=== PATIENT | male | born 1950 | race Caucasian/White ===

== ENCOUNTER → 2024-03-28 | Outpatient (CLI) | payer MEDICARE, OTHER ==
--- NOTE | 2024-04-07 13:19 | CT ---
EXAMINATION TYPE: CT chest abdomen wo con CT DLP: 903 mGycm, Automated exposure control for dose reduction was used. DATE OF EXAM: 03/28/2024 9:58 AM COMPARISON: None. CLINICAL INDICATION:Male, 73 years old with history of C34.90 LUNG CANCER; [facility], f/u lung cancer Technique: CT chest abdomen wo con; Multiple axial images were obtained. Two-dimensional coronal and sagittal reconstructions were obtained. Contrast used: mL of , Oral contrast used: without Oral Contrast Findings: CHEST: LUNGS/ PLEURA: Mild centrilobular emphysema changes and paraseptal emphysema changes. There is reticu lation in the right upper lung with more focal area of consolidation in the superior aspect which is somewhat irregular shaped. There is postsurgical changes to the left upper lung with out evidence of lymphadenopathy or new mass. AIRWAY: Patent and unremarkable. HEART: Size within normal limits. MEDIASTINUM: No gross evidence of adenopathy. VASCULATURE: No aortic aneurysm. MUSCULOSKELETAL: No acute osseous abnormalities. SOFT TISSUES/LYMPH NODES: Unremarkable. LOWER NECK: No significant findings. ABDOMEN: ABDOMEN LIVER: Unremarkable GALLBLADDER AND BILE DUCTS: Unremarkable. PANCREAS: Scattered calcifications of the pancreas parenchyma. SPLEEN: Unremarkable. ADRENAL GLANDS: Unremarkable. KIDNEYS AND URETERS: No evidence of hydronephrosis or renal calculus. The ureters are unremarkable. STOMACH AND BOWEL: No evidence of bowel obstruction. PERITONEUM: No evidence of pneumoperitoneum or free fluid. VASCULATURE: Mild atherosclerotic calcifications are present throughout the abdominal aorta and its b ranches. MUSCULOSKELETAL: No acute osseous abnormalities. Mild disc degeneration changes are present throughou t the thoracolumbar spine. LYMPH NODES: No gross evidence for lymphadenopathy. SOFT TISSUE/ABDOMINAL WALL: Unremarkable IMPRESSION: No priors are available for comparison. 1. Postsurgical changes left lung without evidence for lymphadenopathy or recurrent left lung mass. 2. Parenchymal abnormalities in the right upper lung. Attention follow-up imaging in 3 months to ens ure stability. Comparison study outside imaging may be of benefit. 3. Mild emphysema changes. 4. Chronic pancreatitis changes.
== END | disposition home or self-care (01) ==
LOC: RADCTMAIN 09:36
PROVIDERS: ATTEND Internal Medicine
DX: J43.2 Centrilobular emphysema (principal); K86.1 Other chronic pancreatitis; C34.90 Malignant neoplasm of unspecified part of unspecified bronchus or lung; J44.9 Chronic obstructive pulmonary disease, unspecified; J98.4 Other disorders of lung; K86.2 Cyst of pancreas; Z98.890 Other specified postprocedural states
CPT/HCPCS: 71250; 74150

== ENCOUNTER → 2024-03-31 | Outpatient (CLI) | payer MEDICARE, OTHER ==
[2024-03-31 11:55] VITALS: BP 150/74; PULSE 76; RESP 16
--- NOTE | 2024-03-31 14:56 | P.PAINPG ---
PQRS Measure Charge Sheet Comment: HISTORY OF PRESENT ILLNESS: A 73 yr old male as a referral from Dr Hale presents today w severe and chronic epigastric pain secondary to chronic pancreatitis for evaluation. Pt states pain level is provoked at 8 /10 in intensity, constant, localized in the upper abdomen, burning in character w occasional shooting pain towards the mid back. Pain has unknown provocative factors. Pain is alleviated by medications (Creon, MS, Tyl), topical, heat, ice, use of a cane for ambulatory assistance, repositioning and rest. Will obtain records from his physician in [place] per MAPS. PMH: OA, HTN, Hyperlipidemia, GERD, BPH, Chronic Idiopathic Pancreatitis (2015), Liver CA PSH: Lung Lobectomy (2010), RLL/ ULL Lobectomy (2018) by Dr Lynne SH: Former tobacco user, No ETOH abuse, No illicit drug use FH: Noncontributory All: See list Meds: See list REVIEW OF ORGAN SYSTEMS: CONSTITUTIONAL: No fevers or chills. No recent weight loss. NEUROLOGICAL: + numbness and tingling along the distal extremities. No seizure disorders or headaches. MUSCULOSKELETAL: + pain PSYCHIATRIC: Denies current depression or suicidal thoughts. Physical Examinations : Constitutional : Cooperative , not in acute distress . Neurologic : Cranial nerve II to XII intact. No focal neurological deficits. Psychiatric : alert & oriented x 3. Matching mood & appropriate affect. Judgment & insight intact. Musculoskeletal : Cervical Spine Motor strength in the deltoid and biceps: Normal right side. Normal Left side Motor strength biceps and the wrist extensors: Normal right side . Normal left side Motor strength in the triceps muscle: Normal right side. Normal left side Deep tendon reflexes: Normal at the biceps. Normal at Brachioradialis. Normal at triceps Vertebral body tenderness to deep palpation over Cervical facet loading test: positive bilaterally Spurling test: positive bilaterally Neck distraction test: positive bilaterally Bridget sign: positive bilaterally Lumbar spine Motor strength lower extremities ,thigh and legs 5/5 Right side , 5/5 Left side Deep tendon reflexes : Normal Knee Jerk. Normal Ankle Jerk Vertebral body tenderness over Gomez Test positive Lumbar facet Loading Test: positive Right / positive Left Range of motion of the lumbar spine Flexion 30 degrees, extension 10 degrees Straight Leg Raise test: Left/ Right positive at degrees Shiela test: positive right / positive left. Severe tenderness over the Sacroiliac joint on the Right / Left sides Gaenslen test: positive bilaterally Seated flexion test: positive bilaterally. Sacral spine : Severe tenderness over the Sacroiliac joint: right side / left side Range of motion: Flexion of the lumbar spine <60 degrees Range of motion: Extension of the lumbar spine <20 degrees Gaenslen's Test positive Shiela test: positive right side / left side Thigh Thrust Test Sacral Thrust Test Assessment/ Plan : Chronic Idiopathic Pancreatitis Recommendation of medication management. MS ER 15mg #90 w 1 RF. Use, side effects, adverse reactions, safe storage discussed. Pt does not drive since 1996 and presents w dental assistant medical assistant today. Opiate/ narcotic agreement signed 03/31/24. All questions answered. I have spent greater than 30 minutes on patient care today. Dr Pisano was available by phone for the evaluation of this patient. The time was used to review the medical records including relevant urine studies and Prescription history (MAPs), review of the available imaging, evaluation and examination of the patient, coordination of care with the medical staff and if applicable refer ring physicians, as well as creation of the medical record Home Medications: Ambulatory Orders Morphine Sulfate ER [Ms Contin] 15 mg PO TID 30 Days #90 tab 03/31/24 Morphine Sulfate ER [Ms Contin] 15 mg PO TID 30 Days #90 tab 03/31/24 Controlled Substance Measures - Controlled Substance Measures Is patient prescribed a controlled substance at discharge?: Yes When asked, does pt state using other controlled substances?: No If prescribed controlled substance>3 days was MAPS reviewed?: Yes If Rx opioid, was Start Talking consent form obtained?: Yes Was information provided regarding opioid addiction?: Yes
== END ==
LOC: PNWHC3 10:27
PROVIDERS: ATTEND Specialist
DX: K86.1 Other chronic pancreatitis (principal); G89.29 Other chronic pain; R10.13 Epigastric pain; Z87.891 Personal history of nicotine dependence; Z88.0 Allergy status to penicillin; Z88.8 Allergy status to other drugs, medicaments and biological substances; Z88.1 Allergy status to other antibiotic agents; Z88.5 Allergy status to narcotic agent
CPT/HCPCS: 99211

== ENCOUNTER → 2024-05-28 | Outpatient (CLI) | payer MEDICARE, OTHER ==
[2024-05-28 08:24] VITALS: BP 128/72; PULSE 60; RESP 16; TEMP 97.1
--- NOTE | 2024-05-28 13:57 | P.PAINPG ---
PQRS Measure Charge Sheet Comment: HISTORY OF PRESENT ILLNESS: A 73 yr old male presents today w severe and chronic epigastric pain secondary to chronic pancreatitis for medication refills. Pt states pain level is provoked at 7 /10 in intensity, constant, localized in the upper abdomen, burning in character w occasional shooting pain towards the mid back. Pain has unknown provocative factors. Pain is alleviated by medications, topical, heat, ice, use of a cane for ambulatory assistance, repositioning and rest. Interventional procedures include Medications include MS ER 15mg #90, Tyl REVIEW OF ORGAN SYSTEMS: CONSTITUTIONAL: No fevers or chills. No recent weight loss. NEUROLOGICAL: + numbness and tingling along the distal extremities. No seizure disorders or headaches. MUSCULOSKELETAL: + pain PSYCHIATRIC: Denies current depression or suicidal thoughts. Physical Examinations : Constitutional : Cooperative , not in acute distress . Neurologic : Cranial nerve II to XII intact. No focal neurological deficits. Psychiatric : alert & oriented x 3. Matching mood & appropriate affect. Judgment & insight intact. Musculoskeletal : Cervical Spine Motor strength in the deltoid and biceps: Normal right side. Normal Left side Motor strength biceps and the wrist extensors: Normal right side . Normal left side Motor strength in the triceps muscle: Normal right side. Normal left side Deep tendon reflexes: Normal at the biceps. Normal at Brachioradialis. Normal at triceps Vertebral body tenderness to deep palpation over Cervical facet loading test: positive bilaterally Spurling test: positive bilaterally Neck distraction test: positive bilaterally Bridget sign: positive bilaterally Lumbar spine Motor strength lower extremities ,thigh and legs 5/5 Right side , 5/5 Left side Deep tendon reflexes : Normal Knee Jerk. Normal Ankle Jerk Vertebral body tenderness over Gomez Test positive Lumbar facet Loading Test: positive Right / positive Left Range of motion of the lumbar spine Flexion 30 degrees, extension 10 degrees Straight Leg Raise test: Left/ Right positive at degrees Shiela test: positive right / positive left. Severe tenderness over the Sacroiliac joint on the Right / Left sides Gaenslen test: positive bilaterally Seated flexion test: positive bilaterally. Sacral spine : Severe tenderness over the Sacroiliac joint: right side / left side Range of motion: Flexion of the lumbar spine <60 degrees Range of motion: Extension of the lumbar spine <20 degrees Gaenslen's Test positive Shiela test: positive right side / left side Thigh Thrust Test Sacral Thrust Test Assessment/ Plan : Chronic Idiopathic Pancreatitis Recommendation of medication management. MS ER 15mg #90 w 1 RF. Use, side effects, adverse reactions, safe storage discussed. Opiate/ narcotic agreement signed 03/31/24. UDS collected 05/28/24. All questions answered. I have spent greater than 30 minutes on patient care today. Dr Pisano was available by phone for the evaluation of this patient. The time was used to review the medical records including relevant urine studies and Prescription history (MAPs), review of the available imaging, evaluation and examination of the patient, coordination of care with the medical staff and if applicable referring physicians, as well as creation of the medical record - Pain Location Left Upper Abdomen Non-Pharmacological Interventions: Position/Reposition Pharmacological Interventions: PRN Medication, Scheduled Medication PQRS Narrative: Hx Alcohol Use (MH) No Home Medications: Ambulatory Orders Albuterol Inhaler [Ventolin Hfa Inhaler] 1 - 2 puff INHALATION Q6H 03/31/24 Albuterol Sulfate [Accuneb] 3 ml INHALATION 03/31/24 Famotidine 20 mg PO 03/31/24 Finasteride [Proscar] 5 mg PO 03/31/24 Ipratropium [place] [Atrovent Hfa] 2 puff INHALATION QID 03/31/24 LORazepam [Lorazepam] 0.5 mg PO 03/31/24 Lipase/Protease/Amylase [Antonio [place] 36,000 Unit Capsule] 1 each PO 03/31/24 Metoprolol Succinate (ER) [Toprol Xl] 50 mg PO DAILY 03/31/24 Nitroglycerin 0.4 SUBLINGUAL 03/31/24 Omeprazole [PriLOSEC] 40 mg PO DAILY 03/31/24 Tamsulosin [Flomax] 0.4 mg PO DAILY 03/31/24 levalbuterol HCL 1.25 mg INHALATION 03/31/24 tiaGABine HCL [Gabitril] 4 mg PO 03/31/24 Morphine Sulfate ER [Ms Contin] 15 mg PO TID 30 Days #90 tab 05/28/24 Morphine Sulfate ER [Ms Contin] 15 mg PO TID 30 Days #90 tab 05/28/24 Controlled Substance Measures - Controlled Substance Measures Is patient prescribed a controlled substance at discharge?: Yes When asked, does pt state using other controlled substances?: Yes If prescribed controlled substance>3 days was MAPS reviewed?: Yes
== END ==
LOC: PNWHC3 07:38
PROVIDERS: ATTEND Specialist
DX: K86.1 Other chronic pancreatitis (principal); M47.816 Spondylosis without myelopathy or radiculopathy, lumbar region; Z88.0 Allergy status to penicillin; Z88.8 Allergy status to other drugs, medicaments and biological substances; Z88.1 Allergy status to other antibiotic agents; Z88.5 Allergy status to narcotic agent
CPT/HCPCS: 80307; 99212

== ENCOUNTER 2024-07-23 16:16 | Emergency (ER) | payer MEDICARE, OTHER ==
[2024-07-23 16:25] VITALS: RESP 18; TEMP 97.4
--- NOTE | 2024-07-23 16:27 | ED ---
General Adult HPI - General Stated complaint: Poss Allergic Reaction Time Seen by Provider: 07/23/24 16:18 Source: patient, EMS, RN notes reviewed, old records reviewed Mode of arrival: EMS Limitations: no limitations - History of Present Illness Initial comments: 73-year-old male who presents to the emergency department stating he has allergic reactions to anything with dairy. Patient states he ate some bread today that had cheese on it and he was unaware of that. Patient states after that he started to get lightheaded and felt like it was difficult to breathe patient states he took a Zyrtec and that helped his breathing. Patient states currently is asymptomatic. According to EMS he was asymptomatic the hallway end. Patient [place] any chest pain or palpitations. Patient denies any numbness or weakness. Patient states this is what always happens when he takes anything with dairy but he also states that this could be a little anxiety because he has a long history of anxiety and once he found out there was cheats he did become very anxious. - Related Data Home Medications Medication Instructions Recorded Confirmed Albuterol Inhaler [Ventolin Hfa 1 - 2 puff INHALATION Q6H 03/31/24 03/31/24 Inhaler] Albuterol Sulfate [Accuneb] 3 ml INHALATION 03/31/24 Famotidine 20 mg PO 03/31/24 Finasteride [Proscar] 5 mg PO 03/31/24 Ipratropium [place] [Atrovent Hfa] 2 puff INHALATION QID 03/31/24 03/31/24 LORazepam [Lorazepam] 0.5 mg PO 03/31/24 Lipase/Protease/Amylase [Creon Dr 1 each PO 03/31/24 36,000 Unit Capsule] Metoprolol Succinate (ER) [Toprol 50 mg PO DAILY 03/31/24 03/31/24 Xl] Nitroglycerin 0.4 SUBLINGUAL 03/31/24 Omeprazole [PriLOSEC] 40 mg PO DAILY 03/31/24 03/31/24 Tamsulosin [Flomax] 0.4 mg PO DAILY 03/31/24 03/31/24 levalbuterol HCL 1.25 mg INHALATION 03/31/24 tiaGABine HCL [Gabitril] 4 mg PO 03/31/24 Previous Rx's Medication Instructions Recorded Morphine Sulfate ER [Ms Contin] 15 mg PO TID 30 Days #90 tab 05/28/24 Morphine Sulfate ER [Ms Contin] 15 mg PO TID 30 Days #90 tab 05/28/24 Morphine Sulfate ER [Ms Contin] 15 mg PO Q12HR 3 Days #6 tab 06/05/24 Morphine Sulfate ER [Ms Contin] 15 mg PO TID 30 Days #90 tab 06/05/24 Morphine Sulfate ER [Ms Contin] 15 mg PO TID 15 Days #45 tab 06/11/24 Allergies Allergy/AdvReac Type Severity Reaction Status Date / Time amoxicillin Allergy Unknown Verified 07/23/24 16:25 ketorolac [From Toradol] Allergy Unknown Verified 07/23/24 16:25 levofloxacin [From Levaquin] Allergy Unknown Verified 07/23/24 16:25 metronidazole [From Flagyl] Allergy Unknown Verified 07/23/24 16:25 oxycodone Allergy Unknown Verified 07/23/24 16:25 Penicillins Allergy Unknown Verified 07/23/24 16:25 tramadol Allergy Unknown Verified 07/23/24 16:25 Review of Systems ROS Statement: Those systems with pertinent positive or pertinent negative responses have been documented in the HPI. ROS Other: All systems not noted in ROS Statement are negative. Past Medical History Past Medical History: Cancer Additional Past Medical History / Comment(s): Lung cancer, pancreatitis, brain damage-TBI History of Any Multi-Drug Resistant Organisms: None Reported Additional Past Surgical History / Comment(s): Lung cancer bilateral lobectomy Past Psychological History: No Psychological Hx Reported Smoking Status: Former smoker Past Alcohol Use History: None Reported Past Drug Use History: None Reported General Exam - General Exam Comments Initial Comments: GENERAL: Patient is well-developed and well-nourished. Patient is nontoxic and well- hydrated and is in no acute distress. ENT: Neck is soft and supple. No significant lymphadenopathy is noted. Oropharynx is clear. Moist mucous membranes. Neck has full range of motion without eliciting any pain. EYES: The sclera were anicteric and conjunctiva were pink and moist. Extraocular movements were intact and pupils were equal round and reactive to light. Eyelids were unremarkable. PULMONARY: Unlabored respirations. Good breath sounds bilaterally. No audible rales rhonchi or wheezing was noted. CARDIOVASCULAR: There is a regular rate and rhythm without any murmurs gallops or rubs. ABDOMEN: Soft and nontender with normal bowel sounds. SKIN: Skin is clear with no lesions or rashes and otherwise unremarkable. NEUROLOGIC: Patient is alert and oriented x3. Cranial nerves II through XII are grossly intact. Motor and sensory are also intact. Normal speech, volume and content. Symmetrical smile. MUSCULOSKELETAL: Normal extremities with adequate strength and full range of motion. LYMPHATICS: No significant lymphadenopathy is noted PSYCHIATRIC: Normal psychiatric evaluation. Limitations: no limitations Course Vital Signs 07/23/24 07/23/24 07/23/24 16:19 16:30 17:00 Temperature 97.4 F L Pulse Rate 67 60 56 L Respiratory 18 18 18 Rate Blood Pressure 146/66 146/66 133/74 O2 Sat by Pulse 100 99 100 Oximetry 07/23/24 07/23/24 07/23/24 17:30 18:00 18:30 Temperature Pulse Rate 68 61 66 Respiratory 18 18 18 Rate Blood Pressure 118/59 137/69 116/60 O2 Sat by Pulse 100 Oximetry Medical Decision Making - Medical Decision Making EKG is interpreted by myself. EKG shows a sinus rhythm at 60 bpm. Over the 163 QRS is 102 QT interval is 414 QTc is 415. Patient's EKG shows no ST segment ovation or depression. Was pt. sent in by a medical professional or institution (, PA, RAILWAY TRACK WORKER, urgent care, hospital, or usp...) When possible be specific @ -No Did you speak to anyone other than the patient for history (EMS, parent, family, police, friend...)? What history was obtained from this source @ -No Did you review nursing and triage notes (agree or disagree)? Why? @ -I reviewed and agree with nursing and triage notes Were old charts reviewed (outside hosp., previous admission, EMS record, old EKG, old radiological studies, urgent care reports/EKG's, usp records)? Report findings @ -No old charts were reviewed Differential Diagnosis? @ -Anxiety, allergic reaction, pneumonia, bronchitis, this is not an all- inclusive list EKG interpreted by me (3pts min.). @ -As above X-rays interpreted by me (1pt min.). @ -Patient's chest x-ray shows a area of opacification of the right upper lobe which was there on a previous CAT scan months ago. Patient is aware that he has lung cancer and follows up regularly. CT interpreted by me (1pt min.). @ -None done U/S interpreted by me (1pt. min.). @ -None done What testing was considered but not performed or refused? (CT, X-rays, U/S, labs)? Why? @ -None What meds were considered but not given or refused? Why? @ -None Did you discuss the management of the patient with other professionals (professionals i.e. Dr., PA, RAILWAY TRACK WORKER, lab, RT, psych nurse, social service liaison, curtain feller blindstitch, teacher, dispatch officer, vocational case manager)? Give summary @ -No Was smoking cessation discussed for >3mins.? @ -No Was critical care preformed (if so, how long)? @ -No Were there social determinants of health that impacted care today? How? (Homelessness, low income, unemployed, alcoholism, drug addiction, transportation, low edu. Level, literacy, decrease access to med. care, [facility], rehab)? @ -No Was there de-escalation of care discussed even if they declined (Discuss DNR or withdrawal of care, Hospice)? DNR status @ -No What co-morbidities impacted this encounter? (DM, HTN, Smoking, COPD, CAD, Ca ncer, CVA, ARF, Chemo, Hep., AIDS, mental health diagnosis, sleep apnea, morbid obesity)? @ -None Was patient admitted / discharged? Hospital course, mention meds given and route, prescriptions, significant lab abnormalities, going to OR and other pertinent info. @ -Patient was initially given prednisone he was asymptomatic shortly thereafter. Patient did need some Ativan because he states he felt very anxious. I went back and reevaluated the patient on 2 different occasions and patient was feeling back to his baseline and wanted to be discharged home. Undiagnosed new problem with uncertain prognosis? @ -No Drug Therapy requiring intensive monitoring for toxicity (Heparin, Nitro, Insulin, Cardizem)? @ -No Were any procedures done? @ -No Diagnosis/symptom? @ -Allergic reaction Acute, or Chronic, or Acute on Chronic? @ -Acute Uncomplicated (without systemic symptoms) or Complicated (systemic symptoms)? @ -Uncomplicated Side effects of treatment? @ -No Exacerbation, Progression, or Severe Exacerbation? @ -No Poses a threat to life or bodily function? How? (Chest pain, [place], [place], pneumonia, PE, COPD, DKA, ARF, appy, cholecystitis, CVA, Diverticulitis, Homicidal, Suicidal, threat to staff... and all critical care pts) @ -No Disposition Clinical Impression: Allergic reaction Disposition: HOME SELF-CARE Condition: Good Instructions (If sedation given, give patient instructions): General Allergic Reaction (ED) Is patient prescribed a controlled substance at d/c from ED?: No Referrals: Marvin Peace [Primary Care Provider] - 1-2 days Time of Disposition: 19:08
[2024-07-23] MEDS: predniSONE 20 MG TAB PO STA (16:43)
[2024-07-23] MEDS ORDERED: LORazepam 2 MG/ML INJ IV PRN (17:13)
[2024-07-23] MEDS: LORazepam 2 MG/ML INJ IV STA (17:26)
--- NOTE | 2024-07-23 18:17 | XR ---
EXAMINATION TYPE: XR chest 2V DATE OF EXAM: 07/23/2024 COMPARISON: CT chest 03/28/2024 INDICATION: Difficulty breathing TECHNIQUE: Frontal and lateral views of the chest are obtained. FINDINGS: The heart size is normal. The pulmonary vasculature is normal. There is some minimal infiltrate in the periphery of the right upper lung field. This was present on the comparison CT examination may be related to patient's known lung cancer.. IMPRESSION: 1. Mild peripheral right upper lobe infiltrate, present on prior CT examination. This may be related to the patient's lung cancer. 2. No acute pulmonary process.
[2024-07-23 18:40] VITALS: BP 116/60; PULSE 66
== END 2024-07-23 19:22 | disposition home or self-care (01) ==
LOC: EC 16:16
CPT/HCPCS: 71046; 93005; 96374; 99284

== ENCOUNTER → 2024-07-31 | Outpatient (CLI) | payer MEDICARE, OTHER ==
--- NOTE | 2024-07-31 11:37 | CT ---
EXAMINATION TYPE: CT ChestAbdPelvis wo con DATE OF EXAM: 07/31/2024 COMPARISON: 03/28/2024 HISTORY: chest pain CT DLP: 448.5 mGycm. Automated Exposure Control for Dose Reduction was Utilized. TECHNIQUE: CT scan of the thorax, abdomen and pelvis is performed without IV contrast. FINDINGS: CT chest: There are postsurgical changes of left upper lobe lobectomy. There is a focal area of stable marked interstitial changes with a few internal scattered satellite s ubcentimeter nodules. A stable 4-5 mm nodule in the left upper lung zone. There are mild emphysematous changes. There is no new or suspicious lung mass or nodule. There is a 2.1 cm mass in the right hilar region which was not clearly identified in the prior study. It possibly represents an enlarged right hilar lymph node but the examination is limited due to lack of IV contrast. There is no pleural effusion or pneumothorax. There is no thoracic aortic aneurysm. There is focal abnormality of the posterior proximal left sixth rib which possibly represents a remot e healed fracture. No other focal osseous abnormalities are seen. CT abdomen and pelvis: Gallbladder is normal and there is no gallstone, wall thickening, pericholecystic fluid or distention . There is no biliary ductal dilatation. There is no organomegaly of the liver, pancreas, spleen or adrenal glands. There are diffuse calcific ations within the pancreas consistent with chronic pancreatitis. There are no renal calcifications or hydronephrosis. The caliber of the abdominal aorta is normal and there is no retroperitoneal adenopathy or hemorrhage . The bowel loops are normal in caliber is no evidence of obstruction. No inflammatory changes are iden tified in the mesentery and there is no free intraperitoneal air or fluid. There is no pelvic mass, free fluid, abscess or adenopathy. There is marked prostatic hypertrophy wit h mass effect on the bladder base. The osseous structures and soft tissues are unremarkable. IMPRESSION: 1. Stable focal area of right upper lobe interstitial density with few scattered stable sub-6 mm nodu les bilaterally. 2. Post surgical changes of left upper lobe lobectomy. 3. Questionable large 2.1 cm right hilar lymph node as described above. Examination is limited for ev aluation of mediastinal and hilar adenopathy secondary to lack of contrast and repeat CT chest with c ontrast is recommended to rule out an enlarged right hilar lymph node. 4. No evidence of metastatic disease within the abdomen or pelvis. 5. Marked prostatic hypertrophy and chronic pancreatic calcifications.
== END | disposition home or self-care (01) ==
LOC: RADCTMAIN 10:43
PROVIDERS: ATTEND Internal Medicine
DX: C34.90 Malignant neoplasm of unspecified part of unspecified bronchus or lung
CPT/HCPCS: 71250; 74176

== ENCOUNTER 2024-09-11 09:40 | Inpatient (IN) | payer MEDICARE, OTHER ==
[2024-09-11 09:50] VITALS: TEMP 98.7
--- NOTE | 2024-09-11 10:38 | ED ---
General Adult HPI - General Chief complaint: Chest Pain Stated complaint: SOB Time Seen by Provider: 09/11/24 09:42 Source: patient, RN notes reviewed, old records reviewed Mode of arrival: EMS Limitations: no limitations - History of Present Illness Initial comments: 73-year-old male presenting for evaluation of chest pain and dyspnea. Patient has prior history of lung CA status post bilateral lobectomies. He does report mild cough. Pain was central chest. No reported history of CAD. No diaphoresis. No vomiting. - Related Data Home Medications Medication Instructions Recorded Confirmed Albuterol Inhaler [Ventolin Hfa 1 - 2 puff INHALATION Q6H 03/31/24 03/31/24 Inhaler] Albuterol Sulfate [Accuneb] 3 ml INHALATION 03/31/24 Famotidine 20 mg PO 03/31/24 Finasteride [Proscar] 5 mg PO 03/31/24 Ipratropium [place] [Atrovent Hfa] 2 puff INHALATION QID 03/31/24 03/31/24 LORazepam [Lorazepam] 0.5 mg PO 03/31/24 Lipase/Protease/Amylase [Creon Dr 1 each PO 03/31/24 36,000 Unit Capsule] Metoprolol Succinate (ER) [Toprol 50 mg PO DAILY 03/31/24 03/31/24 Xl] Nitroglycerin 0.4 SUBLINGUAL 03/31/24 Omeprazole [PriLOSEC] 40 mg PO DAILY 03/31/24 03/31/24 Tamsulosin [Flomax] 0.4 mg PO DAILY 03/31/24 03/31/24 levalbuterol HCL 1.25 mg INHALATION 03/31/24 tiaGABine HCL [Gabitril] 4 mg PO 03/31/24 Previous Rx's Medication Instructions Recorded Morphine Sulfate ER [Ms Contin] 15 mg PO TID 30 Days #90 tab 08/13/24 Morphine Sulfate ER [Ms Contin] 15 mg PO TID 30 Days #90 tab 08/13/24 Allergies Allergy/AdvReac Type Severity Reaction Status Date / Time amoxicillin Allergy Unknown Verified 09/11/24 13:06 fentanyl Allergy Unknown Verified 09/11/24 13:06 ketorolac [From Toradol] Allergy Unknown Verified 09/11/24 13:06 levofloxacin [From Levaquin] Allergy Unknown Verified 09/11/24 13:06 metronidazole [From Flagyl] Allergy Unknown Verified 09/11/24 13:06 oxycodone Allergy Unknown Verified 09/11/24 13:06 Penicillins Allergy Unknown Verified 09/11/24 13:06 tramadol Allergy Unknown Verified 09/11/24 13:06 Review of Systems ROS Statement: Those systems with pertinent positive or pertinent negative responses have been documented in the HPI. ROS Other: All systems not noted in ROS Statement are negative. Past Medical History Past Medical History: Cancer Additional Past Medical History / Comment(s): Lung cancer, pancreatitis, brain damage-TBI History of Any Multi-Drug Resistant Organisms: None Reported Additional Past Surgical History / Comment(s): Lung cancer bilateral lobectomy Past Psychological History: No Psychological Hx Reported Smoking Status: Former smoker Past Alcohol Use History: None Reported Past Drug Use History: None Reported General Exam Limitations: no limitations General appearance: alert, in no apparent distress Head exam: Present: atraumatic, normocephalic Eye exam: Present: normal appearance, PERRL Respiratory exam: Present: decreased breath sounds. Absent: respiratory distress Cardiovascular Exam: Present: normal rhythm, bradycardia GI/Abdominal exam: Present: soft. Absent: distended Extremities exam: Present: pedal edema (trace) Course Vital Signs 09/11/24 09/11/24 09/11/24 09:46 10:06 10:12 Temperature 98.7 F Pulse Rate 63 49 L Pulse Rate [ 59 L Assignment Desk Assistant ] Respiratory 18 20 Rate Blood Pressure 112/71 134/56 O2 Sat by Pulse 99 99 Oximetry 09/11/24 11:40 Temperature Pulse Rate 55 L Pulse Rate [ Assignment Desk Assistant ] Respiratory 16 Rate Blood Pressure 107/55 O2 Sat by Pulse 98 Oximetry Medical Decision Making - Medical Decision Making Was pt. sent in by a medical professional or institution (, [place], [facility], urgent care, hospital, or assisted...) When possible be specific @ -No Did you speak to anyone other than the patient for history (EMS, parent, family, police, friend...)? What history was obtained from this source @ -No Did you review nursing and triage notes (agree or disagree)? Why? @ -I reviewed and agree with nursing and triage notes Were old charts reviewed (outside hosp., previous admission, EMS record, old EKG, old radiological studies, urgent care reports/EKG's, assisted records)? Report findings @ -No old charts were reviewed Differential Chest Pain: Stable Angina, Unstable Angina, STEMI, NSTEMI Aortic Dissection, Pneumothorax, Musculoskeletal, Esophageal Spasm GERD, Cholecystitis, Pancreatitis, Zoster, this is not meant to be an all-inclusive list. EKG interpreted by me (3pts min.). @EKG: Sinus bradycardia with sinus arrhythmia rate of 52, IA interval 169, QRS duration 101, QTc [address] segment elevation. X-rays interpreted by me (1pt min.). @ -Chest x-ray persistent perihilar mass CT interpreted by me (1pt min.). @ -CT angiography negative for PE U/S interpreted by me (1pt. min.). @ -None done What testing was considered but not performed or refused? (CT, X-rays, U/S, labs)? Why? @ -None What meds were considered but not given or refused? Why? @ -None Did you discuss the management of the patient with other professionals (professionals i.e. , PA, [facility], lab, RT, psych nurse, psych social worker, freight service inspector, teacher, assurance officer, child support case officer)? Give summary @ -Case discussed with Dr. Jimenez Was smoking cessation discussed for >3mins.? @ -No Was critical care preformed (if so, how long)? @ -No Were there social determinants of health that impacted care today? How? (Homelessness, low income, unemployed, alcoholism, drug addiction, transportation, low edu. Level, literacy, decrease access to med. care, [facility], rehab)? @ -No Was there de-escalation of care discussed even if they declined (Discuss DNR or withdrawal of care, Hospice)? DNR status @ -No What co-morbidities impacted this encounter? (DM, HTN, Smoking, COPD, CAD, Cancer, CVA, ARF, Chemo, Hep., AIDS, mental health diagnosis, sleep apnea, morbid obesity)? @ -[Lung CA Was patient admitted / discharged? Hospital course, mention meds given and route, prescriptions, significant lab abnormalities, going to OR and other pertinent info. @73-year-old male with known lung cancer presenting with central chest pain and some right-sided chest pain with associated dyspnea. Initial workup does reveal an elevated D-dimer and patient received CT angiography in the emergency department which is negative for PE. He has a negative troponin, nonischemic EKG. He does report some associated lightheadedness and near syncope associated with his pain. Patient will be observed for hydration, pain control evaluation by his oncologist and serial cardiac enzymes. Undiagnosed new problem with uncertain prognosis? @ -No Drug Therapy requiring intensive monitoring for toxicity (Heparin, Nitro, Insulin, Cardizem)? @ -No Were any procedures done? @ -No Diagnosis/symptom? @ -[Atypical chest pain, lung cancer Acute, or Chronic, or Acute on Chronic? @ -Acute Uncomplicated (without systemic symptoms) or Complicated (systemic symptoms)? @ -[default Side effects of treatment? @ -No Exacerbation, Progression, or Severe Exacerbation? @ -No Poses a threat to life or bodily function? How? (Chest pain, [place], SC, pneumonia, PE, COPD, DKA, ARF, appy, cholecystitis, CVA, Diverticulitis, Homicidal, Suicidal, threat to staff... and all critical care pts) @ -Yes, chest pain - Lab Data Result diagrams: 09/11/24 10:06 09/11/24 10:06 Lab Results 09/11/24 09/11/24 09/11/24 Range/Units 10:06 10:06 10:06 WBC 5.0 (3.8-10.6) k/uL RBC 3.97 L (4.30-5.90) m/uL Hgb 12.9 L (13.0-17.5) gm/dL Hct 39.0 (39.0-53.0) % MCV 98.3 (80.0-100.0) fL MCH 32.5 (25.0-35.0) pg MCHC 33.1 (31.0-37.0) g/dL RDW 13.9 (11.5-15.5) % Plt Count 156 (150-450) k/uL MPV 8.6 Neutrophils % 54 % Lymphocytes % 33 % Monocytes % 8 % Eosinophils % 3 % Basophils % 0 % Neutrophils # 2.7 (1.3-7.7) k/uL Lymphocytes # 1.6 (1.0-4.8) k/uL Monocytes # 0.4 (0-1.0) k/uL Eosinophils # 0.2 (0-0.7) k/uL Basophils # 0.0 (0-0.2) k/uL PT 10.0 (10.0-12.5) sec INR 0.9 (<1.2) APTT 28.4 (22.0-30.0) sec D-Dimer 0.78 H (<0.60) mg/L FEU Sodium 136 L (137-145) mmol/L Potassium 4.0 (3.5-5.1) mmol/L Chloride 108 H (98-107) mmol/L Carbon Dioxide 23 (22-30) mmol/L Anion Gap 5 mmol/L BUN 12 (9-20) mg/dL Creatinine 0.77 (0.66-1.25) mg/dL Est GFR (CKD-EPI)AfAm >90 (>60 ml/min/1.73 sqM) Est GFR (CKD-EPI)NonAf 90 (>60 ml/min/1.73 sqM) Glucose 107 H (74-99) mg/dL Calcium 8.6 (8.4-10.2) mg/dL Magnesium 2.2 (1.6-2.3) mg/dL Total Bilirubin 0.6 (0.2-1.3) mg/dL AST 17 (17-59) U/L ALT 13 (4-49) U/L Alkaline Phosphatase 33 L (38-126) U/L Troponin I (0.000-0.034) ng/mL Total Protein 5.9 L (6.3-8.2) g/dL Albumin 3.7 (3.5-5.0) g/dL 09/11/24 Range/Units 10:06 WBC (3.8-10.6) k/uL RBC (4.30-5.90) m/uL Hgb (13.0-17.5) gm/dL Hct (39.0-53.0) % MCV (80.0-100.0) fL MCH (25.0-35.0) pg MCHC (31.0-37.0) g/dL RDW (11.5-15.5) % Plt Count (150-450) k/uL MPV Neutrophils % % Lymphocytes % % Monocytes % % Eosinophils % % Basophils % % Neutrophils # (1.3-7.7) k/uL Lymphocytes # (1.0-4.8) k/uL Monocytes # (0-1.0) k/uL Eosinophils # (0-0.7) k/uL Basophils # (0-0.2) k/uL PT (10.0-12.5) sec INR (<1.2) APTT (22.0-30.0) sec D-Dimer (<0.60) mg/L FEU Sodium (137-145) mmol/L Potassium (3.5-5.1) mmol/L Chloride (98-107) mmol/L Carbon Dioxide (22-30) mmol/L Anion Gap mmol/L BUN (9-20) mg/dL Creatinine (0.66-1.25) mg/dL Est GFR (CKD-EPI)AfAm (>60 ml/min/1.73 sqM) Est GFR (CKD-EPI)NonAf (>60 ml/min/1.73 sqM) Glucose (74-99) mg/dL Calcium (8.4-10.2) mg/dL Magnesium (1.6-2.3) mg/dL Total Bilirubin (0.2-1.3) mg/dL AST (17-59) U/L ALT (4-49) U/L Alkaline Phosphatase (38-126) U/L Troponin I <0.012 (0.000-0.034) ng/mL Total Protein (6.3-8.2) g/dL Albumin (3.5-5.0) g/dL Disposition Clinical Impression: Chest pain, Lung cancer Disposition: ADMITTED IP TO THIS [facility] Condition: Stable Is patient prescribed a controlled substance at d/c from ED?: No Referrals: Wilmer Dumont DO [Primary Care Provider] - 1-2 days Time of Disposition: 13:09
[2024-09-11 10:39] LABS: ALT 13 U/L (4-49); AST 17 U/L (17-59); African American GFR (CKD) >90 (>60 ml/min/1.73 sqM); Albumin 3.7 g/dL (3.5-5.0); Alkaline Phosphatase 33 U/L (38-126); Anion Gap 5 mmol/L; Blood Urea Nitrogen 12 mg/dL (9-20); Calcium 8.6 mg/dL (8.4-10.2); Carbon Dioxide 23 mmol/L (22-30); Chloride 108 mmol/L (98-107); Glucose 107 mg/dL (74-99); Magnesium 2.2 mg/dL (1.6-2.3); Non-African American GFR(CKD) 90 (>60 ml/min/1.73 sqM); Sodium 136 mmol/L (137-145); Total Bilirubin 0.6 mg/dL (0.2-1.3); Total Protein 5.9 g/dL (6.3-8.2)
[2024-09-11 10:41] LABS: Basophils % (A) 0 %; Eosinophils # (A) 0.2 k/uL (0-0.7); Eosinophils % (A) 3 %; HGB 12.9 gm/dL (13.0-17.5); Lymphocytes # (A) 1.6 k/uL (1.0-4.8); Lymphocytes % (A) 33 %; MCH 32.5 pg (25.0-35.0); MCHC 33.1 g/dL (31.0-37.0); MCV 98.3 fL (80.0-100.0); Mean Platelet Volume 8.6; Monocytes # (A) 0.4 k/uL (0-1.0); Monocytes % (A) 8 %; Neutrophils # (A) 2.7 k/uL (1.3-7.7); Neutrophils % (A) 54 %; Platelet Count 156 k/uL (150-450); RBC 3.97 m/uL (4.30-5.90); RDW 13.9 % (11.5-15.5)
[2024-09-11 10:42] LABS: INR 0.9 (<1.2); Partial Thromboplastin Time 28.4 sec (22.0-30.0)
--- NOTE | 2024-09-11 10:54 | XR ---
EXAMINATION TYPE: XR chest 2V DATE OF EXAM: 09/11/2024 COMPARISON: 07/23/2024 HISTORY: Lung cancer TECHNIQUE: Frontal and lateral views of the chest are obtained. FINDINGS: There is persistent elevation of the left hilum secondary to lobectomy. There is a masslike density of the right hilum which is stable. There is no pneumothorax or pleural effusion. The heart and pulmonary vasculature are normal. There is questionable destruction of the right sixth rib which was seen previously. IMPRESSION: 1. Findings highly suspicious for recurrent lung cancer within the right hilar region with possible r ib destruction as described above. 2. Post surgical changes of left upper lobe lobectomy. 3. No acute cardiopulmonary disease. No interval change. IMPRESSION: No acute cardiopulmonary process. [facility], , 09/11/2024 10:52 AM
--- NOTE | 2024-09-11 11:40 | CT ---
EXAMINATION TYPE: CT angio chest DATE OF EXAM: 09/11/2024 11:21 AM COMPARISON: HISTORY: CP, WILLIAM, pos dimer, hx lung ca CT DLP: 289.4 mGycm Automated exposure control for dose reduction was used. CONTRAST: CTA scan of the thorax is performed with IV Contrast, patient injected with 100 mL of Isovue 370, pul monary embolism protocol FINDINGS: There are postsurgical changes in the lungs bilaterally. There are moderate emphysematous changes with an upper lobe predominance. There is a stable 11 to 12 mm spiculated subpleural parenchymal nodule in the right upper lobe with a djacent pleural thickening. Immediately inferior to the lesion, there is a focal area of interstitia l opacity which is now becoming more mass like centrally. The central mass measures approximately 12 mm. There is a stable 6 mm nodule in the right lower lobe.. There is a small 2 to 3 mm subpleural par enchymal density in the right upper lobe. There are multifocal small areas of new groundglass opacity in the left upper and lower lobes posteri luba. There is there is no stable bilateral hilar adenopathy. Right hilar lymph node is 3 cm. The left anastacio r lymph node is 2 cm. There are no filling defects within the pulmonary arteries or branches to sugge st pulmonary embolism. No focal osseous lesions are seen. Limited scanning through the upper abdomen reveals no gross abnormality exception of pancreatic calci fications indicating chronic pancreatitis. IMPRESSION: 1. No evidence of pulmonary disease. 2. Findings highly suspicious for recurrent neoplasm with hilar adenopathy as described above. [facility], , 09/11/2024 11:38 AM
[2024-09-11] MEDS ORDERED: NALOXONE 0.4 MG/ML 1 ML VIAL IV PRN (13:05)
[2024-09-11] MEDS ORDERED: ACETAMINOPHEN TAB 325 MG TAB PO PRN (13:05)
[2024-09-11] MEDS ORDERED: ONDANSETRON 4 MG/2 ML VIAL IVP PRN (13:05)
[2024-09-11] MEDS: MORPHINE SULFATE 4 MG/ML SYRINGE IVP STA (13:29)
[2024-09-11] MEDS: SODIUM CHLORIDE 0.9% 500 ML 500 ML IV ONE (13:34)
[2024-09-11] MEDS: SODIUM CHLORIDE 0.9% 1,000 ML IV SCH (13:35)
[2024-09-11] MEDS ORDERED: LIPASE 20,000/PROTEASE 63,000/AMYLASE 84,000 PO PRN (14:08)
[2024-09-11] MEDS: TAMSULOSIN 0.4 MG CAP.ER.24H PO SCH (14:24)
[2024-09-11] MEDS: FINASTERIDE 5 MG TAB PO SCH (14:24)
[2024-09-11] MEDS: ENOXAPARIN 40 MG/0.4 ML SYRINGE SQ SCH (14:58)
--- NOTE | 2024-09-11 15:06 | P.HPIM ---
History of Present Illness H&P Date: 09/11/24 Patient is a 73-year-old patient with PMH of lung cancer status post bilateral lobectomy no prior chemotherapy or radiation, COPD, A-fib (not on anticoagulation), chronic pancreatitis, hypertension, hyperlipidemia, GERD, and BPH presents the ER with a complaint of sudden onset chest pain which woke him up this morning. Patient states that he has sharp constant central chest pain, 9 out of 10, nonradiating, no alleviating or exacerbating factors associated with shortness of breath and diaphoresis. Patient has been experiencing similar episodes of chest pain since 3 to 4 months. Patient has been feeling weak, lethargic and having night sweats for the last 3 to 4 months. Denies history of CAD and or CVA. Denies any weight loss. Patient denies any recent hospital ization, recent travel and no history of blood clots. Patient is following Dr. Lynne at the [facility] for right hilar mass after he was referred by gastroenterology Dr. Hale who he sees for chronic pancreatitis. Patient also following pulmonology with Dr. Claros for COPD. He saw Dr. Claros 2 days ago and was told that he will have a PET scan for further evaluation concerning right hilar lung mass. Laboratory evaluation in the ER shows WBC of 5.0, hemoglobin 12.9, hematocrit 39.0, D-dimer 0.78, sodium 136, potassium 4.0, chloride 108, glucose 107, leidy line phosphatase 33, troponin less than 0.012. Chest x-ray in the ER suspicious findings for recurrent lung cancer within the right hilar region and postsurgical changes of the left upper lymphectomy but otherwise no acute cardiopulmonary disease. CTA in the ER shows suspicious findings for recurrent neoplasm with a right hilar adenopathy. EKG in the ER shows sinus bradycardia. Normal UT interval, QRS interval, QTc interval and R wave progression. Review of systems: Pertinent positives and negatives as discussed in HPI, a complete review of systems was performed and all other systems are negative. Social history: Tobacco: 1 pack/day x 55 years Alcohol: Social Recreational drugs: No Travel: None Physical examination: Vital signs reviewed General: non toxic, no distress, appears at stated age, normal weight Derm: no unusual rashes/lesions, warm Head: atraumatic, normocephalic, symmetric Eyes: EOMI, no lid lag, anicteric sclera, pupils equal round reactive to light ENT: Nose and ears atraumatic Neck: No cervical lymphadenopathy, trachea midline, supple Mouth: no lip lesion, mucus membranes moist Cardiovascular: S1S2 reg, no murmur, positive dorsalis pedis pulse bilateral, no edema, reproducible sternal chest pain Lungs: CTA bilateral, no rhonchi, no rales, no accessory muscle use Abdominal: soft, nontender to palpation, no guarding Ext: muscle strength 5 out of 5 in all 4 extremities grossly, no gross muscle atrophy, no contractures, Neuro: CN II-XI grossly intact, no gross focal neuro deficits Psych: Alert, oriented, appropriate affect Assessment/Plan: Patient is a 73-year-old patient with PMH of lung cancer status post bilateral lobectomy, COPD (not on home O2), A-fib (not on anticoagulation), chronic pancreatitis hypertension, hyperlipidemia, GERD, and BPH presents the ER with a complaint of sudden onset chest pain. Patient admitted to internal medicine service for further evaluation of chest pain. Rule out ACS. #Atypical Chest pain, rule out ACS, likely costochondritis #Sinus bradycardia #Chronic pancreatitis Troponin less than 0.012; continue to trend Echocardiogram Heart score: 4 points moderate risk Cardiac telemetry IV morphine every 4 hours as needed for chest pain Lipid panel ordered on 07/28/2024 shows LDL 102.9 and HDL 66.3 TSH done on 07/28/2024 was 2.370 IV fluids at 75 cc/h Order Amylase and lipase Order ESR and CRP Aspirin 81 mg po daily Lipitor 40mg po daily Patient does have some reproducible chest pain, possibly component of costochond ritis Echocardiogram pending Hold metoprolol #History of lung cancer s/p bilateral lobectomy Chest x-ray and CT chest shows suspicious mass in the right lower region Hematology oncology consulted Patient having B symptoms since 3 to 4 months #Elevated D-dimer D-dimer 0.70 CTA negative for PE Chronic: BPH GERD F: IV normal saline 75 cc/h E: Replete as needed N: Regular diet A: Ambulatory DVT prophylaxis: Lovenox 40 mg subcu The patient is admitted as inpatient with an anticipated more than 2 midnight s pretty for evaluation of atypical chest pain CODE STATUS: Full code Discussed with: Patient Anticipated discharge place: Pending clinical course A total of 65 minutes was spent on the care of this complex patient more than 50% of the time was spent in counseling and care coordination. I have seen and evaluated the patient today. Discussed with the resident and agree with the residents finding and plan as documented in the resident's note. Changes highlighted in blue font. Past Medical History Past Medical History: Cancer Additional Past Medical History / Comment(s): Lung cancer, pancreatitis, brain damage-TBI History of Any Multi-Drug Resistant Organisms: None Reported Additional Past Surgical History / Comment(s): Lung cancer bilateral lobectomy Past Psychological History: No Psychological Hx Reported Smoking Status: Former smoker Past Alcohol Use History: None Reported Past Drug Use History: None Reported Medications and Allergies Home Medications Medication Instructions Recorded Confirmed Type Famotidine 20 mg PO BID 03/31/24 09/11/24 History Finasteride [Proscar] 5 mg PO DAILY 03/31/24 09/11/24 History Ipratropium [place] [Atrovent Hfa] 1 - 2 puff INHALATION RT-QID PRN 03/31/24 09/11/24 History LORazepam [Lorazepam] 0.5 mg PO TID PRN 03/31/24 09/11/24 History Lipase/Protease/Amylase [Antonio [place] 2 cap PO BID-W/MEALS PRN 03/31/24 09/11/24 History 36,000 Unit Capsule] Omeprazole [PriLOSEC] 40 mg PO BID 03/31/24 09/11/24 History Tamsulosin [Flomax] 0.4 mg PO DAILY 03/31/24 09/11/24 History tiaGABine HCL [Gabitril] 4 mg PO BID 03/31/24 09/11/24 History Morphine Sulfate ER [Ms Contin] 15 mg PO TID 30 Days #90 tab 08/13/24 09/11/24 Rx Levalbuterol Nebulized [Xopenex 1.25 mg INHALATION RT-TID 09/11/24 09/11/24 History Nebulized] Lipase/Protease/Amylase [Antonio [place] 1 cap PO TID-W/MEALS PRN 09/11/24 09/11/24 History 36,000 Unit Capsule] Metoprolol Tartrate [Lopressor] 50 mg PO DAILY 09/11/24 09/11/24 History Naloxone HCl [Narcan] 4 mg NASAL DIRECTED PRN 09/11/24 09/11/24 History Allergies Allergy/AdvReac Type Severity Reaction Status Date / Time amoxicillin Allergy Unknown Verified 09/11/24 13:06 fentanyl Allergy Unknown Verified 09/11/24 13:06 ketorolac [From Toradol] Allergy Unknown Verified 09/11/24 13:06 levofloxacin [From Levaquin] Allergy Unknown Verified 09/11/24 13:06 metronidazole [From Flagyl] Allergy Unknown Verified 09/11/24 13:06 oxycodone Allergy Unknown Verified 09/11/24 13:06 Penicillins Allergy Unknown Verified 09/11/24 13:06 tramadol Allergy Unknown Verified 09/11/24 13:06 Physical Exam Vitals: Vital Signs Temp Pulse Pulse Resp BP Pulse Ox 09/11/24 13:19 71 16 136/72 99 09/11/24 11:40 55 L 16 107/55 98 09/11/24 10:12 59 L 09/11/24 10:06 49 L 20 134/56 99 09/11/24 09:46 98.7 F 63 18 112/71 99 Intake and Output 09/10/24 09/11/24 09/11/24 22:59 06:59 14:59 Other: Weight 78.018 kg Results CBC & Chem 7: 09/11/24 10:06 09/11/24 10:06 Labs: Abnormal Lab Results - Last 24 Hours (Table) 09/11/24 09/11/24 09/11/24 Range/Units 10:06 10:06 10:06 RBC 3.97 L (4.30-5.90) m/uL Hgb 12.9 L (13.0-17.5) gm/dL D-Dimer 0.78 H (<0.60) mg/L FEU Sodium 136 L (137-145) mmol/L Chloride 108 H (98-107) mmol/L Glucose 107 H (74-99) mg/dL Alkaline Phosphatase 33 L (38-126) U/L Total Protein 5.9 L (6.3-8.2) g/dL
[2024-09-11] MEDS: MORPHINE SULFATE ER 15 MG TABLET PO SCH (15:28)
[2024-09-11] MEDS: ASPIRIN 81 MG PO SCH (15:29)
[2024-09-11] MEDS: ATORVASTATIN 40 MG TAB PO SCH (15:29)
[2024-09-11 16:38] LABS: Amylase 38 U/L (30-110); C Reactive Protein <0.5 mg/dL (<1.0); Lipase 24 U/L (23-300)
[2024-09-11] MEDS: PANTOPRAZOLE 40 MG TABLET PO SCH (16:58)
[2024-09-11] MEDS: ALBUTEROL NEBULIZED 2.5 MG/3 ML INHALATION SCH (19:58)
[2024-09-11] MEDS: MORPHINE SULFATE 4 MG/ML SYRINGE IV PRN (21:27)
[2024-09-11] MEDS: TIAGABINE HCL 4 MG PO SCH (22:03)
[2024-09-11] MEDS: LORazepam 0.5 MG TAB PO PRN (22:54)
[2024-09-12] MEDS: IPRATROPIUM 0.5 MG/2.5 ML NEBU INHALATION PRN (04:08)
[2024-09-12 08:53] LABS: African American GFR (CKD) >90 (>60 ml/min/1.73 sqM); Anion Gap 8 mmol/L; Blood Urea Nitrogen 10 mg/dL (9-20); Calcium 8.5 mg/dL (8.4-10.2); Carbon Dioxide 24 mmol/L (22-30); Chloride 108 mmol/L (98-107); Glucose 154 mg/dL (74-99); Non-African American GFR(CKD) >90 (>60 ml/min/1.73 sqM); Potassium 3.6 mmol/L (3.5-5.1); Sodium 140 mmol/L (137-145)
[2024-09-12] MEDS: LIPASE 20,000/PROTEASE 63,000/AMYLASE 84,000 PO PRN (09:09)
--- NOTE | 2024-09-12 09:41 | CA ---
Transthoracic Echo Report Name: Stephen Thurman Age: 73 Gender: M : 1950 Exam Date: 09/11/2024 15:52 Exam Location: [facility] Ht (in): 74 Wt (lb): 172 Ordering Physician: Aditya Underwood MD Attending/Referring Phys: [id number], Yasmine Director Of Knowledge Management Angeline Zuñiga RDCS Procedure CPT: Indications: CP/near syncope Cardiac Hx: Technical Quality: Good Contrast 1: Total Dose (mL): Contrast 2: Total Dose (mL): MEASUREMENTS (Male / Female) Normal Values 2D ECHO LV Diastolic Diameter PLAX 5.1 cm 4.2 - 5.9 / 3.9 - 5.3 cm LV Systolic Diameter PLAX 2.6 cm IVS Diastolic Thickness 1.0 cm 0.6 - 1.0 / 0.6 - 0.9 cm LVPW Diastolic Thickness 1.3 cm 0.6 - 1.0 / 0.6 - 0.9 cm LV Relative Wall Thickness 0.4 RV Internal Dim ED PLAX 1.6 cm LA Systolic Diameter LX 2.5 cm 3.0 - 4.0 / 2.7 - 3.8 cm LV Diastolic Volume MOD BP 96.2 cm??? 67 - 155 / 56 - 104 cm??? LV Systolic Volume MOD BP 22.0 cm??? 22 - 58 / 19 - 49 cm??? LV Ejection Fraction MOD BP 77.1 % >= 55 % LV Cardiac Index MOD BP 2100.6 cm???/min???m??? LV Diastolic Volume MOD 4C 81.2 cm??? LV Systolic Volume MOD 4C 24.5 cm??? LV Ejection Fraction MOD 4C 69.9 % LV Cardiac Index MOD 4C 1606.1 cm???/min???m??? LV Diastolic Length 4C 7.1 cm LV Systolic Length 4C 5.7 cm LV Diastolic Volume MOD 2C 100.5 cm??? LV Systolic Volume MOD 2C 19.4 cm??? LV Ejection Fraction MOD 2C 80.7 % LV Cardiac Index MOD 2C 2296.4 cm???/min???m??? LV Diastolic Length 2C 8.1 cm LV Systolic Length 2C 5.5 cm LA Volume 37.4 cm??? 18 - 58 / 22 - 52 cm??? LA Volume Index 18.6 cm???/m??? 16 - 28 cm???/m??? M-MODE Aortic Root Diameter MM 3.8 cm LA Systolic Diameter MM 2.8 cm LA Ao Ratio MM 0.8 AV Cusp Separation MM 1.7 cm DOPPLER AV Peak Velocity 177.3 cm/s AV Peak Gradient 12.6 mmHg AV Mean Velocity 125.1 cm/s AV Mean Gradient 6.9 mmHg AV Velocity Time Integral 45.0 cm AI Peak Velocity 415.2 cm/s AI Peak Gradient 68.9 mmHg AI Pressure Half Time 608.8 ms LVOT Peak Velocity 98.5 cm/s LVOT Peak Gradient 3.9 mmHg LVOT Velocity Time Integral 23.7 cm MV Area PHT 2.5 cm??? Mitral E Point Velocity 65.3 cm/s Mitral A Point Velocity 79.3 cm/s Mitral E to A Ratio 0.8 MV Deceleration Time 305.0 ms TR Peak Velocity 251.4 cm/s TR Peak Gradient 25.3 mmHg FINDINGS Left Ventricle Left ventricular ejection fraction is estimated at 60-65 %. Normal left ventricular systolic function with no obvious regional wall motion abnormalities. Left ventricular cavity size normal. Mildly increased left ventricular wall thickness. Right Ventricle Normal right ventricular size and function. Right ventricular systolic pressure within normal limits. Right Atrium Mild right atrial dilatation. Left Atrium Mild left atrial dilatation. Mitral Valve Structurally normal mitral valve. No mitral stenosis. Mild mitral regurgitation. Aortic Valve Bicuspid aortic valve. Focal thickening of the aortic valve cusps. Moderate aortic regurgitation. Tricuspid Valve Structurally normal tricuspid valve. Mild tricuspid regurgitation. No tricuspid stenosis. Pulmonic Valve Structurally normal pulmonic valve. Trace pulmonic regurgitation. No pulmonic stenosis. Pericardium No pericardial or pleural effusion. Aorta Mild aortic dilatation at the level of the sinuses of valsalva (root). CONCLUSIONS Normal LV size and systolic function with mild concentric LVH. There is a bicuspid aortic valve which is calcified but no significant restriction. There is mild to moderate aortic regurgitation noted. Mild mitral and tricuspid insufficiency. No pericardial effusion. No significant pulmonary hypertension Previewed by: Dr. Leela Batres MD (Electronically Signed) Final Date: 12 September 2024 09:40
--- NOTE | 2024-09-12 11:37 | P.DS ---
Providers Date of admission: 09/11/24 13:06 Expected date of discharge: 09/12/24 Attending physician: Shay Jimenez Consults: 09/11/24 13:05 Consult Physician Routine Consulting Provider: Paul Lynne Consult Reason/Comments: Lung CA, Chest pain Do you want consulting provider notified?: Yes Primary care physician: Wilmer Dumont Hospital Course: Discharge Diagnosis: #Atypical Chest pain, rule out ACS, likely costochondritis #Sinus bradycardia #Chronic pancreatitis #History of lung cancer s/p bilateral lobectomy #Elevated D-dimer Hospital Course: Patient is a 73-year-old patient with PMH of lung cancer status post bilateral lobectomy no prior chemotherapy or radiation, COPD, A-fib (not on anticoagulation), chronic pancreatitis, hypertension, hyperlipidemia, GERD, and BPH presents the ER with a complaint of sudden onset chest pain. Laboratory evaluation in the ER shows WBC of 5.0, hemoglobin 12.9, hematocrit 39.0, D-dimer 0.78, sodium 136, potassium 4.0, chloride 108, glucose 107, alkaline phosphatase 33, troponin less than 0.012. Chest x-ray in the ER suspicious findings for recurrent lung cancer within the right hilar region and postsurgical changes of the left upper lymphectomy but otherwise no acute cardiopulmonary disease. CTA in the ER shows suspicious findings for recurrent neoplasm with a right hilar adenopathy. EKG in the ER shows sinus bradycardia. Normal AR interval, QRS interval, QTc interval and R wave progression. ACS was ruled out with negative troponin levels and atypical presentation of chest pain. Echocardiogram shows 60 to 65% LVEF. Patient is hemodynamically stable and medically optimized to be discharged. Discharge instructions: Patient is advised to follow-up with PCP and oncologist Dr. Lynne Patient is advised to continue with his home medications as directed Patient has been prescribed diclofenac topical gel for musculoskeletal chest pain Patient is provided with handout/instruction on chest wall pain. Vital signs reviewed. Gen: in no apparent distress, resting comfortably in bed Eyes: PERRL, no scleral injection or icterus HENT: normocephalic, atraumatic, good hearing acuity, moist mucous membranes Neck: full range of motion Resp: CTAB, no rales, rhonchi, or wheezes CVS: normal S1 and S2, no murmurs, rubs or gallops, no edema GI: soft, NTTP, ND, no hepatosplenomegaly : no suprapubic tenderness, no CVAT, yoon catheter has not present MSK: no clubbing, no cyanosis, no noted contractures of extremities Skin: no noted rashes, petechiae; temperature of skin is appropriate Neuro: moving all extremities without signs of weakness, CN II-XII intact Psych: cooperative, euthymic mood, insight and judgment intact A total of 33 minutes of time were spent preparing this complex discharge summary. Patient was discharged on 09/12/2024 at 927. I have seen and evaluated the patient today. Discussed with the resident and agree with the residents finding and plan as documented in the resident's note. Changes highlighted in blue font. Patient Condition at Discharge: Stable Plan - Discharge Summary New Discharge Prescriptions: New Diclofenac Sodium Gel [Voltaren 1% Gel] 2 gm TOPICAL QID #100 gm Continue Tamsulosin [Flomax] 0.4 mg PO DAILY Omeprazole [PriLOSEC] 40 mg PO BID tiaGABine HCL [Gabitril] 4 mg PO BID LORazepam 0.5 mg PO TID PRN PRN Reason: Anxiety Morphine Sulfate ER [Ms Contin] 15 mg PO TID 30 Days #90 tab Lipase/Protease/Amylase [[place]io [place] 36,000 Unit Capsule] 1 cap PO TID-W/MEALS PRN PRN Reason: SMALL MEALS Ipratropium [place] [Atrovent Hfa] 1 - 2 puff INHALATION RT-QID PRN PRN Reason: Shortness Of Breath Lipase/Protease/Amylase [Antonio [place] 36,000 Unit Capsule] 2 cap PO BID-W/MEALS PRN PRN Reason: WITH LARGE MEALS Finasteride [Proscar] 5 mg PO DAILY Famotidine 20 mg PO BID Naloxone HCl [Narcan] 4 mg NASAL DIRECTED PRN PRN Reason: Overdose Metoprolol Tartrate [Lopressor] 50 mg PO DAILY Levalbuterol Nebulized [Xopenex Nebulized] 1.25 mg INHALATION RT-TID Discharge Medication List Famotidine 20 mg PO BID 03/31/24 [History] Finasteride [Proscar] 5 mg PO DAILY 03/31/24 [History] Ipratropium [place] [Atrovent Hfa] 1 - 2 puff INHALATION RT-QID PRN 03/31/24 [History] LORazepam 0.5 mg PO TID PRN 03/31/24 [History] Lipase/Protease/Amylase [Antonio Lancaster 36,000 Unit Capsule] 2 cap PO BID-W/MEALS PRN 03/31/24 [History] Omeprazole [PriLOSEC] 40 mg PO BID 03/31/24 [History] Tamsulosin [Flomax] 0.4 mg PO DAILY 03/31/24 [History] tiaGABine HCL [Gabitril] 4 mg PO BID 03/31/24 [History] Morphine Sulfate ER [Ms Contin] 15 mg PO TID 30 Days #90 tab 08/13/24 [Rx] Levalbuterol Nebulized [Xopenex Nebulized] 1.25 mg INHALATION RT-TID 09/11/24 [History] Lipase/Protease/Amylase [Antonio Lancaster 36,000 Unit Capsule] 1 cap PO TID-W/MEALS PRN 09/11/24 [History] Metoprolol Tartrate [Lopressor] 50 mg PO DAILY 09/11/24 [History] Naloxone HCl [Narcan] 4 mg NASAL DIRECTED PRN 09/11/24 [History] Diclofenac Sodium Gel [Voltaren 1% Gel] 2 gm TOPICAL QID #100 gm 09/12/24 [Rx] Follow up Appointment(s)/Referral(s): Paul Lynne MD [STAFF PHYSICIAN] - 1 Week Wilmer Dumont DO [Primary Care Provider] - 1-2 days Patient Instructions/Handouts: Chest Wall Pain (ED) Activity/Diet/Wound Care/Special Instructions: Please follow up with your PCP and oncologist. Please follow up with PCP for echocardiogram. Please apply Dicofenac gel on the chest for pain. Discharge Disposition: HOME SELF-CARE
[2024-09-12 12:05] VITALS: BP 140/68; RESP 16
[2024-09-12 12:17] VITALS: PULSE 70
--- NOTE | 2024-09-12 19:21 | P.CONS ---
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 He declined adjuvant chemotherapy after stage IIIA lung cancer in 2018 and has been on surveillance with no evidence of disease recurrence. CT chest/abdomen/pelvis without contrast on 03/28/2024 noted no evidence of recurrent malignancy with emphysema and chronic pancreatitis. There was focal consolidation in the right upper lung, with recommendation for repeat CT scan in [address] chest abdomen and pelvis obtained on 07/31/2024 revealed stable focal area of right upper lobe interstitial density with few scattered stable sub- 6 mm nodules bilaterally. Postsurgical changes of the left upper lobe lobectomy. Questionable large 2.1 cm right hilar lymph node. No evidence of metastatic disease within the abdomen or pelvis. Clinic follow-up with Dr. Wanda Lynne was scheduled for today, 09/12 to further discuss findings and plan of care, however was missed due to current hospitalization. Patient presented to emergency room for complaints of chest pain and shortness of breath. Patient states pain has been progressing over the last couple months but over the last couple days pain has progressively worsened causing him to call EMS. Upon presentation chest x-ray showed findings highly suspicious for recurrent lung cancer within the right hilar region with possible rib destruction. No acute cardiopulmonary disease. D-dimer was elevated at 0.78, CTA was subsequently obtained showing no evidence for PE. With stable 11 to 12 mm spiculated subpleural parenchymal nodule in the right upper lobe with adjacent pleural thickening. Immediately inferior to the lesion there is focal area of interstitial opacity which is now becoming more masslike centrally measuring approximately 12 mm. Stable 6 mm nodule in the right lower lobe. 2 to 3 cm subpleural parenchymal density in the right upper lobe. Right hilar lymph node measuring 3 cm. Left hilar lymph node measuring 2 cm. Patient does follow with Dr. Claros and has outpatient PET/CT scheduled and subsequent follow-up. Review of Systems 10 point ROS is negative except as stated in the HPI Past Medical History Past Medical History: Cancer Additional Past Medical History / Comment(s): Lung cancer, pancreatitis, brain damage-TBI History of Any Multi-Drug Resistant Organisms: None Reported Additional Past Surgical History / Comment(s): Lung cancer bilateral lobectomy Past Psychological History: No Psychological Hx Reported Smoking Status: Former smoker Past Alcohol Use History: None Reported Past Drug Use History: None Reported Medications and Allergies Home Medications Medication Instructions Recorded Confirmed Type Famotidine 20 mg PO BID 03/31/24 09/11/24 History Finasteride [Proscar] 5 mg PO DAILY 03/31/24 09/11/24 History Ipratropium [place] [Atrovent Hfa] 1 - 2 puff INHALATION RT-QID PRN 03/31/24 09/11/24 History LORazepam 0.5 mg PO TID PRN 03/31/24 09/11/24 History Lipase/Protease/Amylase [Antonio Lancaster 2 cap PO BID-W/MEALS PRN 03/31/24 09/11/24 History 36,000 Unit Capsule] Omeprazole [PriLOSEC] 40 mg PO BID 03/31/24 09/11/24 History Tamsulosin [Flomax] 0.4 mg PO DAILY 03/31/24 09/11/24 History tiaGABine HCL [Gabitril] 4 mg PO BID 03/31/24 09/11/24 History Morphine Sulfate ER [Ms Contin] 15 mg PO TID 30 Days #90 tab 08/13/24 09/11/24 Rx Levalbuterol Nebulized [Xopenex 1.25 mg INHALATION RT-TID 09/11/24 09/11/24 History Nebulized] Lipase/Protease/Amylase [Antonio Lancaster 1 cap PO TID-W/MEALS PRN 09/11/24 09/11/24 History 36,000 Unit Capsule] Metoprolol Tartrate [Lopressor] 50 mg PO DAILY 09/11/24 09/11/24 History Naloxone HCl [Narcan] 4 mg NASAL DIRECTED PRN 09/11/24 09/11/24 History Diclofenac Sodium Gel [Voltaren 1% 2 gm TOPICAL QID #100 gm 09/12/24 Rx Gel] Allergies Allergy/AdvReac Type Severity Reaction Status Date / Time amoxicillin Allergy Unknown Verified 09/11/24 13:06 fentanyl Allergy Unknown Verified 09/11/24 13:06 ketorolac [From Toradol] Allergy Unknown Verified 09/11/24 13:06 levofloxacin [From Levaquin] Allergy Unknown Verified 09/11/24 13:06 metronidazole [From Flagyl] Allergy Unknown Verified 09/11/24 13:06 oxycodone Allergy Unknown Verified 09/11/24 13:06 Penicillins Allergy Unknown Verified 09/11/24 13:06 tramadol Allergy Unknown Verified 09/11/24 13:06 Physical Exam Vitals: Vital Signs Pulse Resp BP Pulse Ox 09/12/24 09:00 77 16 147/77 98 09/12/24 08:31 74 09/12/24 08:20 78 09/12/24 07:44 86 16 126/53 98 09/12/24 06:01 83 18 96 09/12/24 04:16 72 09/12/24 04:09 69 09/11/24 22:54 69 16 129/63 95 09/11/24 21:20 77 18 139/66 99 09/11/24 20:06 69 09/11/24 20:01 66 09/11/24 18:55 70 16 102/55 100 09/11/24 17:00 74 16 125/61 97 09/11/24 13:19 71 16 136/72 99 09/11/24 11:40 55 L 16 107/55 98 - Constitutional General appearance: average body habitus - EENT Eyes: anicteric sclerae, EOMI ENT: hearing grossly normal - Respiratory Respiratory: bilateral: diminished - Cardiovascular Rhythm: regular - Gastrointestinal General gastrointestinal: soft, no tenderness - Integumentary Integumentary: no cyanotic, no jaundiced - Psychiatric Psychiatric: A&O x's 3 Results CBC & Chem 7: 09/11/24 10:06 09/12/24 07:32 Labs: Abnormal Lab Results - Last 24 Hours (Table) 09/12/24 Range/Units 07:32 Chloride 108 H (98-107) mmol/L Glucose 154 H (74-99) mg/dL Chest x-ray: report reviewed CT scan - abdomen: report reviewed CT scan - chest: report reviewed CT scan - pelvis: report reviewed Assessment and Plan (1) Chest pain Status: Acute Priority: High Code(s): R07.9 - CHEST PAIN, UNSPECIFIED SNOMED Code(s): 52184291 (2) Lung cancer Status: Acute Priority: High Code(s): C34.90 - MALIGNANT NEOPLASM OF UNSP PART OF UNSP BRONCHUS OR LUNG SNOMED Code(s): 177703136 Plan: Hx of lung adenocarcinoma and SCC of lung: Presented to the ER c/o progressing CP and SOB -Oncology history as dictated in HPI -CT chest abdomen and pelvis obtained on 07/31/2024 revealed stable focal area of right upper lobe interstitial density with subcu few scattered stable sub- 6 mm nodules bilaterally. Postsurgical changes of the left upper lobe lobectomy. Questionable large 2.1 cm right hilar lymph node. No evidence of metastatic di sease within the abdomen or pelvis. Clinic follow-up with Dr. Wanda Lynne was scheduled for today, 09/12 to further discuss findings and plan of care, however was missed due to current hospitalization. -Upon admit CTA chest revealed no evidence of PE. Stable 11 to 12 mm spiculated subpleural parenchymal nodule in the right upper lobe with adjacent pleural thickening. Immediately inferior to the lesion there is focal area of interstitial opacity which is now becoming more masslike centrally measuring approximately 12 mm. Stable 6 mm nodule in the right lower lobe. 2 to 3 cm subpleural parenchymal density in the right upper lobe. Right hilar lymph node measuring 3 cm. Left hilar lymph node measuring 2 cm. -Patient follows with Dr. Claros and has outpatient PET/CT scheduled and subsequ ent follow-up Discussed findings and concerns for malignancy with patient. Agree with PET CT and eval for bronchoscopy/biopsy -Clinic f/u will be rescheduled Doctor attests: I performed a history and physical examination of this patient, developed impression and plan of care. Discussed with dictator. I agree with dictators note, documented as a scribe.
== END 2024-09-12 12:03 | disposition home or self-care (01) | DRG 206 ==
LOC: EC 09:40 → 3SCARD 13:06
PROVIDERS: ADMIT Student in an Organized Health Care Education/Training Program; ATTEND Student in an Organized Health Care Education/Training Program
DX: M94.0 Chondrocostal junction syndrome [Tietze] (principal); K86.1 Other chronic pancreatitis; R00.1 Bradycardia, unspecified; I48.91 Unspecified atrial fibrillation; Z87.891 Personal history of nicotine dependence; R79.89 Other specified abnormal findings of blood chemistry; J44.9 Chronic obstructive pulmonary disease, unspecified; Z79.899 Other long term (current) drug therapy; Z85.118 Personal history of other malignant neoplasm of bronchus and lung; Z90.2 Acquired absence of lung [part of]; Z87.19 Personal history of other diseases of the digestive system; Z88.0 Allergy status to penicillin; Z88.1 Allergy status to other antibiotic agents; Z88.5 Allergy status to narcotic agent
CPT/HCPCS: 36415; 71046; 71275; 80048; 80053; 82150; 83690; 83735; 84484; 85025; 85379; 85610; 85652; 85730; 86140; 93005; 93306; 94640; 96361; 96372; 96374; 99285

== ENCOUNTER 2024-09-25 13:27 | Emergency (ER) | payer MEDICARE, OTHER ==
[2024-09-25 15:19] LABS: Basophils % (A) 0 %; Eosinophils # (A) 0.2 k/uL (0-0.7); Eosinophils % (A) 3 %; HCT 38.3 % (39.0-53.0); HGB 12.7 gm/dL (13.0-17.5); Lymphocytes # (A) 2.2 k/uL (1.0-4.8); Lymphocytes % (A) 29 %; MCH 32.6 pg (25.0-35.0); MCHC 33.1 g/dL (31.0-37.0); MCV 98.5 fL (80.0-100.0); Mean Platelet Volume 8.2; Monocytes # (A) 0.5 k/uL (0-1.0); Monocytes % (A) 6 %; Neutrophils # (A) 4.6 k/uL (1.3-7.7); Neutrophils % (A) 60 %; Platelet Count 173 k/uL (150-450); RBC 3.89 m/uL (4.30-5.90); RDW 13.8 % (11.5-15.5); WBC 7.6 k/uL (3.8-10.6)
[2024-09-25 15:37] LABS: ALT 13 U/L (4-49); AST 20 U/L (17-59); African American GFR (CKD) >90 (>60 ml/min/1.73 sqM); Albumin 4.1 g/dL (3.5-5.0); Alkaline Phosphatase 39 U/L (38-126); Anion Gap 6 mmol/L; Blood Urea Nitrogen 13 mg/dL (9-20); Carbon Dioxide 23 mmol/L (22-30); Chloride 109 mmol/L (98-107); Glucose 112 mg/dL (74-99); Non-African American GFR(CKD) 90 (>60 ml/min/1.73 sqM); Potassium 4.2 mmol/L (3.5-5.1); Sodium 138 mmol/L (137-145); Total Bilirubin 0.7 mg/dL (0.2-1.3); Total Protein 6.5 g/dL (6.3-8.2)
--- NOTE | 2024-09-25 15:42 | ED ---
Dizziness HPI - General Chief Complaint: Dizziness Stated Complaint: Dizziness Time Seen by Provider: 09/25/24 15:20 Source: patient, RN notes reviewed, old records reviewed Mode of arrival: ambulatory Limitations: no limitations - History of Present Illness Initial Comments: This is a 73-year-old male to ER for dizziness and weakness. Patient has nons pecific complaints maybe some shortness of breath with cough. Recently new diagnosis of recurrent lung cancer. Otherwise no chest pain no shortness of breath no abdominal pain no fevers no nausea vomiting or diarrhea MD Complaint: dizziness, lightheadedness, near syncope -: days(s) Timing: gradual onset Description: lightheadedness, off-balance History of Same: No History of Trauma: No Severity: mild Improves With: remaining still Worsens With: movement Associated Symptoms: denies other symptoms - Related Data Home Medications Medication Instructions Recorded Confirmed Famotidine 20 mg PO BID 03/31/24 09/11/24 Finasteride [Proscar] 5 mg PO DAILY 03/31/24 09/11/24 Ipratropium [place] [Atrovent Hfa] 1 - 2 puff INHALATION RT-QID PRN 03/31/24 09/11/24 LORazepam 0.5 mg PO TID PRN 03/31/24 09/11/24 Lipase/Protease/Amylase [Antonio Dr 2 cap PO BID-W/MEALS PRN 03/31/24 09/11/24 36,000 Unit Capsule] Omeprazole [PriLOSEC] 40 mg PO BID 03/31/24 09/11/24 Tamsulosin [Flomax] 0.4 mg PO DAILY 03/31/24 09/11/24 tiaGABine HCL [Gabitril] 4 mg PO BID 03/31/24 09/11/24 Levalbuterol Nebulized [Xopenex 1.25 mg INHALATION RT-TID 09/11/24 09/11/24 Nebulized] Lipase/Protease/Amylase [Creronaldo Dr 1 cap PO TID-W/MEALS PRN 09/11/24 09/11/24 36,000 Unit Capsule] Metoprolol Tartrate [Lopressor] 50 mg PO DAILY 09/11/24 09/11/24 Naloxone HCl [Narcan] 4 mg NASAL DIRECTED PRN 09/11/24 09/11/24 Previous Rx's Medication Instructions Recorded Morphine Sulfate ER [Ms Contin] 15 mg PO TID 30 Days #90 tab 08/13/24 Diclofenac Sodium Gel [Voltaren 1% 2 gm TOPICAL QID #100 gm 09/12/24 Gel] Allergies Allergy/AdvReac Type Severity Reaction Status Date / Time amoxicillin Allergy Unknown Verified 09/25/24 13:37 fentanyl Allergy Unknown Verified 09/25/24 13:37 ketorolac [From Toradol] Allergy Unknown Verified 09/25/24 13:37 levofloxacin [From Levaquin] Allergy Unknown Verified 09/25/24 13:37 metronidazole [From Flagyl] Allergy Unknown Verified 09/25/24 13:37 oxycodone Allergy Unknown Verified 09/25/24 13:37 Penicillins Allergy Unknown Verified 09/25/24 13:37 tramadol Allergy Unknown Verified 09/25/24 13:37 Review of Systems ROS Statement: Those systems with pertinent positive or pertinent negative responses have been documented in the HPI. ROS Other: All systems not noted in ROS Statement are negative. Past Medical History Past Medical History: Cancer Additional Past Medical History / Comment(s): Lung cancer, pancreatitis, brain damage-TBI History of Any Multi-Drug Resistant Organisms: None Reported Additional Past Surgical History / Comment(s): Lung cancer bilateral lobectomy Past Psychological History: No Psychological Hx Reported Smoking Status: Former smoker Past Alcohol Use History: None Reported Past Drug Use History: None Reported General Exam Limitations: no limitations General appearance: alert, in no apparent distress Head exam: Present: atraumatic, normocephalic, normal inspection Eye exam: Present: normal appearance, PERRL, EOMI. Absent: scleral icterus, conjunctival injection, periorbital swelling ENT exam: Present: normal exam, mucous membranes moist Neck exam: Present: normal inspection. Absent: tenderness, meningismus, lymphadenopathy Respiratory exam: Present: normal lung sounds bilaterally. Absent: respiratory distress, wheezes, rales, rhonchi, stridor Cardiovascular Exam: Present: regular rate, normal rhythm, normal heart sounds. Absent: systolic murmur, diastolic murmur, rubs, gallop, clicks GI/Abdominal exam: Present: soft, normal bowel sounds. Absent: distended, tenderness, guarding, rebound, rigid Extremities exam: Present: normal inspection, full ROM, normal capillary refill. Absent: tenderness, pedal edema, joint swelling, calf tenderness Back exam: Present: normal inspection Neurological exam: Present: alert, oriented X3, CN II-XII intact Psychiatric exam: Present: normal affect, normal mood Skin exam: Present: warm, dry, intact, normal color. Absent: rash Course Vital Signs 09/25/24 09/25/24 13:32 16:49 Temperature 98.5 F Pulse Rate 78 68 Respiratory 20 18 Rate Blood Pressure 120/49 147/76 O2 Sat by Pulse 97 99 Oximetry - Reevaluation(s) Reevaluation #1: 09/25/24 16:27 Medical records reviewed Reevaluation #2: 09/25/24 16:28 Patient symptoms improved Reevaluation #3: 09/25/24 17:30 Patient informed of results questions answered Reevaluation #4: Was pt. sent in by a medical professional or institution (GINGER Tse, SENIOR HARDWARE ENGINEER, urgent care, hospital, or retirement...) When possible be specific @ -no Did you speak to anyone other than the patient for history (EMS, parent, family, police, friend...)? What history was obtained from this source @ -no Did you review nursing and triage notes (agree or disagree)? Why? @ -agree Are old charts reviewed (outside hosp., previous admission, EMS record, old EKG, old radiological studies, urgent care reports/EKG's, retirement records)? Report findings @ -yes Differential Diagnosis (chest pain, altered mental status, abdominal pain women, abdominal pain men, vaginal bleeding, weakness, fever, dyspnea, syncope, headache, dizziness, GI bleed, back pain, seizure, CVA, palpatations, mental health, musculoskeletal)? @ -prior EKG interpreted by me (3pts min.). @ -yes X-rays interpreted by me (1pt min.). @ -yes negative for acute disease CT interpreted by me (1pt min.). @ -no U/S interpreted by me (1pt. min.). @ -no What testing was considered but not performed or refused? (CT, X-rays, U/S, labs)? Why? @ -none What meds were considered but not given or refused? Why? @ -none Did you discuss the management of the patient with other professionals (professionals i.e. GINGER Tse, SENIOR HARDWARE ENGINEER, lab, RT, psych nurse, delinquency prevention social worker, senior contracts administrator, teacher, deportation officer, case advocate)? Give summary @ -no Was smoking cessation discussed for >3mins.? @ -no Was critical care preformed (if so, how long)? @ -no Were there social determinants of health that impacted care today? How? (Homelessness, low income, unemployed, alcoholism, drug addiction, transportation, low edu. Level, literacy, decrease access to med. care, group home, rehab)? @ -none Was there de-escalation of care discussed even if they declined (Discuss DNR or withdrawal of care, Hospice)? DNR status @ -no What co-morbidities impacted this encounter? (DM, HTN, Smoking, COPD, CAD, Cancer, CVA, ARF, Chemo, Hep., AIDS, mental health diagnosis, sleep apnea, morbid obesity)? @ -none Was patient admitted / discharged? Hospital course, mention meds given and route, prescriptions, significant lab abnormalities, going to OR and other pertinent info. @ - Undiagnosed new problem with uncertain prognosis? @ -no Drug Therapy requiring intensive monitoring for toxicity (Heparin, Nitro, Insulin, Cardizem)? @ -no Were any procedures done? @ -no Diagnosis/symptom? @ - Acute, or Chronic, or Acute on Chronic? @ -Acute Uncomplicated (without systemic symptoms) or Complicated (systemic symptoms)? @ -Complicated Side effects of treatment? @ -no Exacerbation, Progression, or Severe Exacerbation? @ -exacerbation Poses a threat to life or bodily function? How? (Chest pain, [place], [place], pneumonia, PE, COPD, DKA, ARF, appy, cholecystitis, CVA, Diverticulitis, Homicidal, Suic idal, threat to staff... and all critical care pts) @ -yes Reevaluation #5: Differential Dizziness: Benign paroxysmal positional Vertigo, Meniere's disease, otitis media, acoustic neuroma, vertebrobasilar insufficiency, cerebellar stroke, encephalitis, hypovolemic, arrhythmia, coronary artery syndrome, anemia, this is not meant to be an all-inclusive list Differential Weakness: Hypoglycemia, shock, sepsis, hyponatremia, anemia, infection, [place], ETOH, adverse medicine reaction, overdose, stroke, this is not meant to be an all-inclusive list. EKG Findings - EKG Comments: EKG Findings:: EKG sinus 72 ME 148 QRS 96 QTc 408 - EKG Results: EKG: interpreted by RINA Medical Decision Making - Medical Decision Making 73 male with dizziness weakness recurrent cancer, patient has no travel or sick contacts no fever cough or congestion no other complaints patient can be discharged home his imaging is negative and lab tests are normal - Lab Data Result diagrams: 09/25/24 15:00 09/25/24 15:00 Lab Results 09/25/24 09/25/24 Range/Units 15:00 15:00 WBC 7.6 (3.8-10.6) k/uL RBC 3.89 L (4.30-5.90) m/uL Hgb 12.7 L (13.0-17.5) gm/dL Hct 38.3 L (39.0-53.0) % MCV 98.5 (80.0-100.0) fL MCH 32.6 (25.0-35.0) pg MCHC 33.1 (31.0-37.0) g/dL RDW 13.8 (11.5-15.5) % Plt Count 173 (150-450) k/uL MPV 8.2 Neutrophils % 60 % Lymphocytes % 29 % Monocytes % 6 % Eosinophils % 3 % Basophils % 0 % Neutrophils # 4.6 (1.3-7.7) k/uL Lymphocytes # 2.2 (1.0-4.8) k/uL Monocytes # 0.5 (0-1.0) k/uL Eosinophils # 0.2 (0-0.7) k/uL Basophils # 0.0 (0-0.2) k/uL Sodium 138 (137-145) mmol/L Potassium 4.2 (3.5-5.1) mmol/L Chloride 109 H (98-107) mmol/L Carbon Dioxide 23 (22-30) mmol/L Anion Gap 6 mmol/L BUN 13 (9-20) mg/dL Creatinine 0.77 (0.66-1.25) mg/dL Est GFR (CKD-EPI)AfAm >90 (>60 ml/min/1.73 sqM) Est GFR (CKD-EPI)NonAf 90 (>60 ml/min/1.73 sqM) Glucose 112 H (74-99) mg/dL Calcium 9.0 (8.4-10.2) mg/dL Total Bilirubin 0.7 (0.2-1.3) mg/dL AST 20 (17-59) U/L ALT 13 (4-49) U/L Alkaline Phosphatase 39 (38-126) U/L Total Protein 6.5 (6.3-8.2) g/dL Albumin 4.1 (3.5-5.0) g/dL - Radiology Data Radiology results: report reviewed (CT brain CTA head neck negative for acute disease), image reviewed Disposition Clinical Impression: Lung cancer, Dehydration, Dizziness, Weakness Disposition: HOME SELF-CARE Condition: Fair Instructions (If sedation given, give patient instructions): Dizziness (ED) Is patient prescribed a controlled substance at d/c from ED?: No Referrals: Wilmer Dumont DO [Primary Care Provider] - 1-2 days Time of Disposition: 17:30
--- NOTE | 2024-09-25 16:35 | CT ---
EXAMINATION TYPE: CT brain wo con DATE OF EXAM: 09/25/2024 4:26 PM COMPARISON: None. CLINICAL INDICATION: Male, 73 years old with history of gallardo, dizziness TECHNIQUE: CT of the brain is performed utilizing 3 mm thick sections through the posterior fossa and 3 mm thick sections through the remaining calvarium. Study is performed within 24 hours of arrival to the hospital. Contrast used: mL of , (none if empty) Oral contrast used: (none if empty) CT DLP: 1142 mGycm, Automated exposure control for dose reduction was used. FINDINGS: No abnormal hyperdensity is present to suggest an acute intracranial hemorrhage. No mass lesion is evident. No acute infarcts are evident. Ventricles and sulci are appropriate for the patient age. Paranasal sinuses and mastoid air cells within the [id number] are clear. IMPRESSION: 1. No acute intracranial process. Follow up MRI can be performed as clinically indicated. [facility], , 09/25/2024 4:32 PM
--- NOTE | 2024-09-25 16:42 | CT ---
EXAMINATION TYPE: CT angio head neck DATE OF EXAM: 09/25/2024 4:28 PM COMPARISON: None. CLINICAL INDICATION: Male, 73 years old with history of gallardo, dizziness, right side neck swelling TECHNIQUE: CTA scan is performed with axial images are obtained, coronal and sagittal reformatted luke ges are reviewed. 3-D reconstructed images are created on an independent workstation and reviewed. S ource images are reviewed. NASCET criteria was used in interpretation of this exam? Contrast used:65 mL of Isovue 370 with IV Contrast, (none if empty) Oral contrast used: (none if empty) CT DLP: 491.1 mGycm, Automated exposure control for dose reduction was used. FINDINGS: Carotid/Vascular Structures: There is a 3 vessel arch. Common carotid arteries bifurcate into internal and external carotid arteries without significant kayleigh w limiting stenosis. Some plaque is present at the bilateral carotid bifurcations without flow limiti ng Vertebral arteries are codominant. Internal carotid arteries and vertebral arteries are patent to the skull base. Cervical of [place]: Vertebral basilar system appears normal. Posterior cerebral vasculature is unrema rkable. Internal carotid arteries bifurcate normally into A1 and M1 segments. A2 segments are normal. The anterior communicating artery is patent. The right posterior communicating artery is small but patent. The left posterior communicating artery is small but patent. Other: Enlarged right hilar adenopathy is present. Smaller left hilar adenopathy is present. A 1.0 cm lymph nodes in the pretracheal space. IMPRESSION: 1. No flow-limiting stenosis bilateral carotid bifurcations. 2. Normal [place] of [place] 3. Enlarged right hilar and pretracheal lymphadenopathy. See CT chest 09/11/2024 [facility], , 09/25/2024 4:40 PM
[2024-09-25 16:50] VITALS: PULSE 68; RESP 18
[2024-09-25 17:58] VITALS: BP 142/60; TEMP 97.7
== END 2024-09-25 18:03 | disposition home or self-care (01) ==
LOC: EC 13:27
DX: C34.90 Malignant neoplasm of unspecified part of unspecified bronchus or lung (principal); E86.0 Dehydration; Z88.0 Allergy status to penicillin; Z88.6 Allergy status to analgesic agent; Z88.5 Allergy status to narcotic agent; Z88.8 Allergy status to other drugs, medicaments and biological substances; Z87.891 Personal history of nicotine dependence; Z88.1 Allergy status to other antibiotic agents
CPT/HCPCS: 36415; 93005; 80053; 85025; 70496; 70450; 70498; 99284; Q9967

== ENCOUNTER 2024-10-17 12:36 | Emergency (ER) | payer MEDICARE, OTHER ==
--- NOTE | 2024-10-17 13:55 | XR ---
EXAMINATION TYPE: XR chest 2V DATE OF EXAM: 10/17/2024 1:44 PM COMPARISON: Chest radiographs 09/11/2024, CTA chest 09/11/2024 TECHNIQUE: XR chest 2V Frontal and lateral views of the chest. CLINICAL INDICATION:Male, 73 years old with history of cough; FINDINGS: Lungs/Pleura: Patchy right midlung peripheral reticular opacities redemonstrated. Chronic elevation r ight hemidiaphragm. No pleural effusion or pneumothorax. Pulmonary vascularity: Unremarkable. Heart/mediastinum: Cardiomediastinal silhouette is stable with enlargement of the right hilar region related to known adenopathy. Atherosclerotic calcifications are seen in the aorta. Musculoskeletal: No acute osseous pathology. Similar remote fracture of the right lateral sixth rib. IMPRESSION: 1. Similar right lateral midlung patchy reticular opacities at site of concerning spiculated nodule on prior CTA. No new concerning focal airspace opacities. 2. Redemonstration of right hilar prominence related to known adenopathy. [facility], , 10/17/2024 1:52 PM
[2024-10-17] MEDS: SODIUM CHLORIDE 0.9% 1,000 ML IV STA (14:02)
[2024-10-17] MEDS: LORazepam 2 MG/ML INJ IV STA (14:04)
[2024-10-17 14:17] LABS: Basophils % (A) 0 %; Eosinophils # (A) 0.3 k/uL (0-0.7); Eosinophils % (A) 4 %; HCT 39.6 % (39.0-53.0); HGB 12.8 gm/dL (13.0-17.5); Lymphocytes # (A) 1.5 k/uL (1.0-4.8); Lymphocytes % (A) 19 %; MCH 32.3 pg (25.0-35.0); MCHC 32.3 g/dL (31.0-37.0); MCV 99.9 fL (80.0-100.0); Mean Platelet Volume 8.5; Monocytes # (A) 0.4 k/uL (0-1.0); Monocytes % (A) 5 %; Neutrophils # (A) 5.4 k/uL (1.3-7.7); Neutrophils % (A) 71 %; Platelet Count 220 k/uL (150-450); RBC 3.97 m/uL (4.30-5.90); RDW 13.7 % (11.5-15.5); WBC 7.6 k/uL (3.8-10.6)
[2024-10-17 14:20] LABS: Appearance,Urine Clear (Clear); Bilirubin,Urine Negative (Negative); Blood,Urine Negative (Negative); Color,Urine Colorless; Glucose,Urine (UA) Negative (Negative); Ketones,Urine Negative (Negative); Leukocyte Esterase,Urine Negative (Negative); Nitrite,Urine Negative (Negative); PH, Urine 5.5 (5.0-8.0); Protein,Urine Negative (Negative); Urobilinogen,Urine <2.0 mg/dL (<2.0)
[2024-10-17 14:21] LABS: ALT 15 U/L (4-49); African American GFR (CKD) >90 (>60 ml/min/1.73 sqM); Anion Gap 5 mmol/L; Blood Urea Nitrogen 18 mg/dL (9-20); Carbon Dioxide 24 mmol/L (22-30); Chloride 107 mmol/L (98-107); Glucose 98 mg/dL (74-99); Non-African American GFR(CKD) 85 (>60 ml/min/1.73 sqM); Sodium 136 mmol/L (137-145); Total Bilirubin 0.7 mg/dL (0.2-1.3)
[2024-10-17 14:23] LABS: AST 26 U/L (17-59); Alkaline Phosphatase 28 U/L (38-126); Potassium 5.2 mmol/L (3.5-5.1)
[2024-10-17 14:24] LABS: Albumin 4.1 g/dL (3.5-5.0); Total Protein 6.7 g/dL (6.3-8.2)
--- NOTE | 2024-10-17 15:39 | ED ---
General Adult HPI - General Chief complaint: Dizziness Stated complaint: Meds Withdraw Time Seen by Provider: 10/17/24 13:00 Source: patient, RN notes reviewed, old records reviewed Mode of arrival: ambulatory Limitations: physical limitation - History of Present Illness Initial comments: Patient is a 73-year-old male who presents emergency department complaining of possible diazepam withdrawal symptoms. Has been oral Ativan 3 times daily. Has been in tablets prescription for 24 hours. States he feels lightheaded, mildly anxious. States this occurs when he has withdrawals from benzos and wants to be treated. Endorses chronic pain for which she does take pain meds at home. Has a history of cancer, seizure disorder. Denies any new pain. Denies nausea or vomiting. States he has craving for Ativan. States he was mildly confused earlier but currently is not. Endorses mild weakness. All symptoms are typical for when he does not have his Ativan. States he can fill it and has a prescription waiting for him however he cannot fill it until Sunday. Presents for further evaluation at this time. - Related Data Home Medications Medication Instructions Recorded Confirmed Famotidine 20 mg PO BID 03/31/24 09/11/24 Finasteride [Proscar] 5 mg PO DAILY 03/31/24 09/11/24 Ipratropium Kimberly [Atrovent Hfa] 1 - 2 puff INHALATION RT-QID PRN 03/31/24 09/11/24 LORazepam 0.5 mg PO TID PRN 03/31/24 09/11/24 Lipase/Protease/Amylase [Creon Dr 2 cap PO BID-W/MEALS PRN 03/31/24 09/11/24 36,000 Unit Capsule] Omeprazole [PriLOSEC] 40 mg PO BID 03/31/24 09/11/24 Tamsulosin [Flomax] 0.4 mg PO DAILY 03/31/24 09/11/24 tiaGABine HCL [Gabitril] 4 mg PO BID 03/31/24 09/11/24 Levalbuterol Nebulized [Xopenex 1.25 mg INHALATION RT-TID 09/11/24 09/11/24 Nebulized] Lipase/Protease/Amylase [Creon Dr 1 cap PO TID-W/MEALS PRN 09/11/24 09/11/24 36,000 Unit Capsule] Metoprolol Tartrate [Lopressor] 50 mg PO DAILY 09/11/24 09/11/24 Naloxone HCl [Narcan] 4 mg NASAL DIRECTED PRN 09/11/24 09/11/24 Previous Rx's Medication Instructions Recorded Morphine Sulfate ER [Ms Contin] 15 mg PO TID 30 Days #90 tab 08/13/24 Diclofenac Sodium Gel [Voltaren 1% 2 gm TOPICAL QID #100 gm 09/12/24 Gel] LORazepam [Ativan] 0.5 mg PO TID 4 Days #12 tab 10/17/24 Allergies Allergy/AdvReac Type Severity Reaction Status Date / Time amoxicillin Allergy Unknown Verified 10/17/24 12:46 fentanyl Allergy Unknown Verified 10/17/24 12:46 ketorolac [From Toradol] Allergy Unknown Verified 10/17/24 12:46 levofloxacin [From Levaquin] Allergy Unknown Verified 10/17/24 12:46 metronidazole [From Flagyl] Allergy Unknown Verified 10/17/24 12:46 oxycodone Allergy Unknown Verified 10/17/24 12:46 Penicillins Allergy Unknown Verified 10/17/24 12:46 tramadol Allergy Unknown Verified 10/17/24 12:46 Review of Systems ROS Statement: Those systems with pertinent positive or pertinent negative responses have been documented in the HPI. Review of Systems: CONST: Denies fever EYES: Denies blurry vision ENT: Denies nasal congestion C/V: Denies Chest pain RESP: Denies shortness of breath GI: Denies abdominal pain : Denies dysuria SKIN: Denies rash. MSK: Denies joint pain. NEURO: Endorses lightheadedness ROS Other: All systems not noted in ROS Statement are negative. Past Medical History Past Medical History: Cancer, Seizure Disorder Additional Past Medical History / Comment(s): Lung cancer, pancreatitis, brain damage-TBI History of Any Multi-Drug Resistant Organisms: None Reported Additional Past Surgical History / Comment(s): Lung cancer bilateral lobectomy Past Psychological History: No Psychological Hx Reported Smoking Status: Former smoker Past Alcohol Use History: None Reported Past Drug Use History: None Reported General Exam Limitations: physical limitation Course Vital Signs 10/17/24 10/17/24 10/17/24 12:47 14:38 15:56 Temperature 98 F 98.5 F Pulse Rate 75 68 69 Respiratory 18 17 18 Rate Blood Pressure 124/61 131/66 130/78 O2 Sat by Pulse 98 97 96 Oximetry Medical Decision Making - Medical Decision Making Was pt. sent in by a medical professional or institution (GINGER Tse, [employer] TEACHER, urgent care, hospital, or senior care...) When possible be specific @ -No Did you speak to anyone other than the patient for history (EMS, parent, family, police, friend...)? What history was obtained from this source @ -No Did you review nursing and triage notes (agree or disagree)? Why? @ -I reviewed and agree with nursing and triage notes Were old charts reviewed (outside hosp., previous admission, EMS record, old EKG, old radiological studies, urgent care reports/EKG's, senior care records)? Report findings @ -Reviewed old charts confirming patient is on Ativan. Differential Diagnosis (chest pain, altered mental status, abdominal pain women, abdominal pain men, vaginal bleeding, weakness, fever, dyspnea, syncope, headache, dizziness, GI bleed, back pain, seizure, CVA, palpatations, mental health, musculoskeletal)? @ -Benzodiazepine withdrawal, electrolyte abnormality, dehydration. This list is not all inclusive. EKG interpreted by me (3pts min.). @ -As above X-rays interpreted by me (1pt min.). @ -Chest x-ray reveals no obvious acute cardiopulmonary process. Chronic findings present including the reticulate opacities that are a chronic finding. CT interpreted by me (1pt min.). @ -None done U/S interpreted by me (1pt. min.). @ -None done What testing was considered but not performed or refused? (CT, X-rays, U/S, labs)? Why? @ -None What meds were considered but not given or refused? Why? @ -None Did you discuss the management of the patient with other professionals ( professionals i.e. GINGER Tse, [employer] TEACHER, lab, RT, psych nurse, rn social services, manager chinese, teacher, soil science technical officer, director of casework department)? Give summary @ -No Was smoking cessation discussed for >3mins.? @ -No Was critical care preformed (if so, how long)? @ -No Were there social determinants of health that impacted care today? How? (Homelessness, low income, unemployed, alcoholism, drug addiction, transportation, low edu. Level, literacy, decrease access to med. care, senior living, rehab)? @ -No Was there de-escalation of care discussed even if they declined (Discuss DNR or withdrawal of care, Hospice)? DNR status @ -No What co-morbidities impacted this encounter? (DM, HTN, Smoking, COPD, CAD, Cancer, CVA, ARF, Chemo, Hep., AIDS, mental health diagnosis, sleep apnea, morbid obesity)? @ -Chronic benzodiazepine use Was patient admitted / discharged? Hospital course, mention meds given and route, prescriptions, significant lab abnormalities, going to OR and other pertinent info. @ -Patient presents with mild symptoms of benzodiazepine withdrawal. Vitals are within acceptable limits. Patient will be given IV fluids as well as a dose of benzodiazepines. We will obtain basic workup. He was in agreement this plan. Vitals are within acceptable limits. EKG shows no signs of acute ischemia. Laboratory studies are all within acceptable limits. Potassium is hemolyzed but normal renal function and patient received IV fluids to treat it. No evidence of EKG changes for hyperkalemia. Remainder the workup unremarkable. Chest x- ray shows chronic findings. Discussed results with patient. He is feeling improved. He is in agreement plan for discharge home. I will provide him with a prescription for the next 4 days until he can fill his prescription. He was in agreement this plan. I will provide the patient with a prescription for Ativan. I instructed the patient to follow up with their PCP in the next 1-3 days.. I explained that the patient should return to the emergency department if they experience any worsening symptoms. Strict return precautions were discussed with the patient. The patient expressed understanding of these instructions. I answered all questions that the patient had. The patient was discharged home in good condition with their prescriptions and follow up information. Undiagnosed new problem with uncertain prognosis? @ -No Drug Therapy requiring intensive monitoring for toxicity (Heparin, Nitro, Insulin, Cardizem)? @ -No Were any procedures done? @ -No Diagnosis/symptom? @ -Medication refill, mild benzodiazepine withdrawal Acute, or Chronic, or Acute on Chronic? @ -Acute Uncomplicated (without systemic symptoms) or Complicated (systemic symptoms)? @ -Uncomplicated Side effects of treatment? @ -No Exacerbation, Progression, or Severe Exacerbation? @ -No Poses a threat to life or bodily function? How? (Chest pain, [place], [place], pneumonia, PE, COPD, DKA, ARF, appy, cholecystitis, CVA, Diverticulitis, Homicidal, Suicidal, threat to staff... and all critical care pts) @ -Unlikely at this time - Lab Data Result diagrams: 10/17/24 13:09 10/17/24 13:09 Lab Results 10/17/24 10/17/24 10/17/24 Range/Units 13:09 13:09 13:44 WBC 7.6 (3.8-10.6) k/uL RBC 3.97 L (4.30-5.90) m/uL Hgb 12.8 L (13.0-17.5) gm/dL Hct 39.6 (39.0-53.0) % MCV 99.9 (80.0-100.0) fL MCH 32.3 (25.0-35.0) pg MCHC 32.3 (31.0-37.0) g/dL RDW 13.7 (11.5-15.5) % Plt Count 220 (150-450) k/uL MPV 8.5 Neutrophils % 71 % Lymphocytes % 19 % Monocytes % 5 % Eosinophils % 4 % Basophils % 0 % Neutrophils # 5.4 (1.3-7.7) k/uL Lymphocytes # 1.5 (1.0-4.8) k/uL Monocytes # 0.4 (0-1.0) k/uL Eosinophils # 0.3 (0-0.7) k/uL Basophils # 0.0 (0-0.2) k/uL Sodium 136 L (137-145) mmol/L Potassium 5.2 H (3.5-5.1) mmol/L Chloride 107 (98-107) mmol/L Carbon Dioxide 24 (22-30) mmol/L Anion Gap 5 mmol/L BUN 18 (9-20) mg/dL Creatinine 0.88 (0.66-1.25) mg/dL Est GFR (CKD-EPI)AfAm >90 (>60 ml/min/1.73 sqM) Est GFR (CKD-EPI)NonAf 85 (>60 ml/min/1.73 sqM) Glucose 98 (74-99) mg/dL Calcium 9.0 (8.4-10.2) mg/dL Total Bilirubin 0.7 (0.2-1.3) mg/dL AST 26 (17-59) U/L ALT 15 (4-49) U/L Alkaline Phosphatase 28 L (38-126) U/L Total Protein 6.7 (6.3-8.2) g/dL Albumin 4.1 (3.5-5.0) g/dL Urine Color Colorless Urine Appearance Clear (Clear) Urine pH 5.5 (5.0-8.0) Ur Specific [place] 1.010 (1.001-1.035) Urine Protein Negative (Negative) Urine Glucose (UA) Negative (Negative) Urine Ketones Negative (Negative) Urine Blood Negative (Negative) Urine Nitrite Negative (Negative) Urine Bilirubin Negative (Negative) Urine Urobilinogen <2.0 (<2.0) mg/dL Ur Leukocyte Esterase Negative (Negative) Influenza Type A (PCR) (Not Detectd) Influenza Type B (PCR) (Not Detectd) RSV (PCR) (Not Detectd) SARS-CoV-2 (PCR) (Not Detectd) 10/17/24 Range/Units 14:01 WBC (3.8-10.6) k/uL RBC (4.30-5.90) m/uL Hgb (13.0-17.5) gm/dL Hct (39.0-53.0) % MCV (80.0-100.0) fL MCH (25.0-35.0) pg MCHC (31.0-37.0) g/dL RDW (11.5-15.5) % Plt Count (150-450) k/uL MPV Neutrophils % % Lymphocytes % % Monocytes % % Eosinophils % % Basophils % % Neutrophils # (1.3-7.7) k/uL Lymphocytes # (1.0-4.8) k/uL Monocytes # (0-1.0) k/uL Eosinophils # (0-0.7) k/uL Basophils # (0-0.2) k/uL Sodium (137-145) mmol/L Potassium (3.5-5.1) mmol/L Chloride (98-107) mmol/L Carbon Dioxide (22-30) mmol/L Anion Gap mmol/L BUN (9-20) mg/dL Creatinine (0.66-1.25) mg/dL Est GFR (CKD-EPI)AfAm (>60 ml/min/1.73 sqM) Est GFR (CKD-EPI)NonAf (>60 ml/min/1.73 sqM) Glucose (74-99) mg/dL Calcium (8.4-10.2) mg/dL Total Bilirubin (0.2-1.3) mg/dL AST (17-59) U/L ALT (4-49) U/L Alkaline Phosphatase (38-126) U/L Total Protein (6.3-8.2) g/dL Albumin (3.5-5.0) g/dL Urine Color Urine Appearance (Clear) Urine pH (5.0-8.0) Ur Specific [place] (1.001-1.035) Urine Protein (Negative) Urine Glucose (UA) (Negative) Urine Ketones (Negative) Urine Blood (Negative) Urine Nitrite (Negative) Urine Bilirubin (Negative) Urine Urobilinogen (<2.0) mg/dL Ur Leukocyte Esterase (Negative) Influenza Type A (PCR) Not Detected (Not Detectd) Influenza Type B (PCR) Not Detected (Not Detectd) RSV (PCR) Not Detected (Not Detectd) SARS-CoV-2 (PCR) Not Detected (Not Detectd) - EKG Data -: EKG Interpreted by Me EKG Comments: 12-lead Electrocardiogram Interpretation Note EKG was reviewed and interpreted by myself. 12-lead ECG performed at 1335 is interpreted by me as revealing bradycardia with PACs. At a rate of 56 beats per minute. [place] is normal. PA interval is 148 ms, QRS duration is 101 ms, QTc is 4 9 6 ms.. There were no ST or T wave abnormalities to suggest myocardial ischemia or injury. R wave progression across the precordium was satisfactory. By my interpretation this EKG is non-diagnostic for acute ischemia. Disposition Clinical Impression: Benzodiazepine withdrawal, Medication refill Disposition: HOME SELF-CARE Condition: Good Additional Instructions: resume ativan medication. return if worsening symptoms Prescriptions: LORazepam [Ativan] 0.5 mg PO TID 4 Days #12 tab Is patient prescribed a controlled substance at d/c from ED?: No Referrals: Wilmer Dumont DO [Primary Care Provider] - 1-2 days Time of Disposition: 15:30
[2024-10-17] MEDS: LORazepam 1 MG TAB PO STA (15:45)
[2024-10-17 15:58] VITALS: BP 130/78; PULSE 69; RESP 18; TEMP 98.5
== END 2024-10-17 15:58 | disposition home or self-care (01) ==
LOC: EC 12:36
DX: G89.29 Other chronic pain (principal); F13.239 Sedative, hypnotic or anxiolytic dependence with withdrawal, unspecified; Z87.891 Personal history of nicotine dependence; Z88.0 Allergy status to penicillin; Z88.1 Allergy status to other antibiotic agents; Z88.5 Allergy status to narcotic agent; Z88.8 Allergy status to other drugs, medicaments and biological substances; Z11.52 Encounter for screening for COVID-19
CPT/HCPCS: 36415; 93005; 80053; 85025; 81003; 87636; 71046; 99284; 96374; 96361; J2060

== ENCOUNTER 2024-10-22 16:18 | Emergency (ER) | payer MEDICARE, OTHER ==
[2024-10-22] MEDS: HYDROmorphone 0.5 MG/0.5 ML SYRINGE IVP STA ×2 (17:46→20:37)
[2024-10-22] MEDS: LORazepam 2 MG/ML INJ IV STA ×2 (17:50→20:37)
--- NOTE | 2024-10-22 17:50 | ED ---
General Adult HPI - General Chief complaint: Shortness of Breath Stated complaint: cough Time Seen by Provider: 10/22/24 17:25 Source: patient, RN notes reviewed, old records reviewed Mode of arrival: ambulatory Limitations: no limitations - History of Present Illness Initial comments: This is a 73-year-old male who presents emergency department stating he had bronchoscopy yesterday and since then he has a burning sensation in his lungs he states it occurs only when he breathes. Patient denies any other chest pain at this time. Patient states he also ran out of his Ativan and pain medication 2 days ago he states he lost and no one will refill it forearm. Patient states he is here for both reasons he is somewhat worried that he might have an infection even though the bronchoscopy was yesterday. Patient states he felt warm last night but did not take his temperature. - Related Data Home Medications Medication Instructions Recorded Confirmed Famotidine 20 mg PO BID 03/31/24 09/11/24 Finasteride [Proscar] 5 mg PO DAILY 03/31/24 09/11/24 Ipratropium [place] [Atrovent Hfa] 1 - 2 puff INHALATION RT-QID PRN 03/31/24 09/11/24 LORazepam 0.5 mg PO TID PRN 03/31/24 09/11/24 Lipase/Protease/Amylase [Antonio Lancaster 2 cap PO BID-W/MEALS PRN 03/31/24 09/11/24 36,000 Unit Capsule] Omeprazole [PriLOSEC] 40 mg PO BID 03/31/24 09/11/24 Tamsulosin [Flomax] 0.4 mg PO DAILY 03/31/24 09/11/24 tiaGABine HCL [Gabitril] 4 mg PO BID 03/31/24 09/11/24 Levalbuterol Nebulized [Xopenex 1.25 mg INHALATION RT-TID 09/11/24 09/11/24 Nebulized] Lipase/Protease/Amylase [Antonio Dr 1 cap PO TID-W/MEALS PRN 09/11/24 09/11/24 36,000 Unit Capsule] Metoprolol Tartrate [Lopressor] 50 mg PO DAILY 09/11/24 09/11/24 Naloxone HCl [Narcan] 4 mg NASAL DIRECTED PRN 09/11/24 09/11/24 Previous Rx's Medication Instructions Recorded Morphine Sulfate ER [Ms Contin] 15 mg PO TID 30 Days #90 tab 08/13/24 Diclofenac Sodium Gel [Voltaren 1% 2 gm TOPICAL QID #100 gm 09/12/24 Gel] LORazepam [Ativan] 0.5 mg PO TID 4 Days #12 tab 10/17/24 Allergies Allergy/AdvReac Type Severity Reaction Status Date / Time amoxicillin Allergy Unknown Verified 10/22/24 16:33 fentanyl Allergy Unknown Verified 10/22/24 16:33 ketorolac [From Toradol] Allergy Unknown Verified 10/22/24 16:33 levofloxacin [From Levaquin] Allergy Unknown Verified 10/22/24 16:33 metronidazole [From Flagyl] Allergy Unknown Verified 10/22/24 16:33 oxycodone Allergy Unknown Verified 10/22/24 16:33 Penicillins Allergy Unknown Verified 10/22/24 16:33 tramadol Allergy Unknown Verified 10/22/24 16:33 Review of Systems ROS Statement: Those systems with pertinent positive or pertinent negative responses have been documented in the HPI. ROS Other: All systems not noted in ROS Statement are negative. Past Medical History Past Medical History: Cancer, Seizure Disorder Additional Past Medical History / Comment(s): Lung cancer, pancreatitis, brain damage-TBI History of Any Multi-Drug Resistant Organisms: None Reported Additional Past Surgical History / Comment(s): Lung cancer bilateral lobectomy Past Psychological History: No Psychological Hx Reported Smoking Status: Former smoker Past Alcohol Use History: None Reported Past Drug Use History: None Reported General Exam - General Exam Comments Initial Comments: GENERAL: Patient is well-developed and well-nourished. Patient is nontoxic and well- hydrated and is in no acute distress. ENT: Neck is soft and supple. No significant lymphadenopathy is noted. Oropharynx is clear. Moist mucous membranes. Neck has full range of motion without el iciting any pain. EYES: The sclera were anicteric and conjunctiva were pink and moist. Extraocular movements were intact and pupils were equal round and reactive to light. Eyelids were unremarkable. PULMONARY: Unlabored respirations. Good breath sounds bilaterally. No audible rales rhonchi or wheezing was noted. CARDIOVASCULAR: There is a regular rate and rhythm without any murmurs gallops or rubs. ABDOMEN: Soft and nontender with normal bowel sounds. SKIN: Skin is clear with no lesions or rashes and otherwise unremarkable. NEUROLOGIC: Patient is alert and oriented x3. Cranial nerves II through XII are grossly intact. Motor and sensory are also intact. Normal speech, volume and content. Symmetrical smile. MUSCULOSKELETAL: Normal extremities with adequate strength and full range of motion. LYMPHATICS: No significant lymphadenopathy is noted PSYCHIATRIC: Normal psychiatric evaluation. Limitations: no limitations Course Vital Signs 10/22/24 10/22/24 10/22/24 16:29 17:41 18:18 Temperature 98.6 F 98.4 F Pulse Rate 86 64 68 Respiratory 20 18 16 Rate Blood Pressure 130/75 139/72 139/72 O2 Sat by Pulse 99 98 98 Oximetry Medical Decision Making - Medical Decision Making EKG is interpreted by myself. EKG shows sinus rhythm at 77 bpm MN was under 56 QRS is 94 QT interval 371 QTc is 403. Patient's EKG shows no ST segment elevation or depression. Was pt. sent in by a medical professional or institution (, PA, DISABILITY ATTORNEY, urgent care, hospital, or prison...) When possible be specific @ -[No] Did you speak to anyone other than the patient for history (EMS, parent, family, police, friend...)? What history was obtained from this source @ -[No] Did you review nursing and triage notes (agree or disagree)? Why? @ -[I reviewed and agree with nursing and triage notes] Were old charts reviewed (outside hosp., previous admission, EMS record, old EKG, old radiological studies, urgent care reports/EKG's, prison records)? Report findings @ -[No old charts were reviewed] Differential Diagnosis? @ -Pneumonia, medication refilled, tracheobronchitis, this is not an all- inclusive list EKG interpreted by me (3pts min.). @ -As above X-rays interpreted by me (1pt min.). @ -Chest x-ray showed no acute normality CT interpreted by me (1pt min.). @ -[None done] U/S interpreted by me (1pt. min.). @ -[None done] What testing was considered but not performed or refused? (CT, X-rays, U/S, labs)? Why? @ -[None] What meds were considered but not given or refused? Why? @ -[None] Did you discuss the management of the patient with other professionals (professionals i.e. , PA, DISABILITY ATTORNEY, lab, RT, psych nurse, clinical social work therapist, tie carrier, teacher, appeals officer, case preparer and liner)? Give summary @ -[No] Was smoking cessation discussed for >3mins.? @ -[No] Was critical care preformed (if so, how long)? @ -[No] Were there social determinants of health that impacted care today? How? (Homelessness, low income, unemployed, alcoholism, drug addiction, transportation, low edu. Level, literacy, decrease access to med. care, usp, rehab)? @ -[No] Was there de-escalation of care discussed even if they declined (Discuss DNR or withdrawal of care, Hospice)? DNR status @ -[No] What co-morbidities impacted this encounter? (DM, HTN, Smoking, COPD, CAD, Cancer, CVA, ARF, Chemo, Hep., AIDS, mental health diagnosis, sleep apnea, m orbid obesity)? @ -[None] Was patient admitted / discharged? Hospital course, mention meds given and route, prescriptions, significant lab abnormalities, going to OR and other pertinent info. @ -I went back into the room to reevaluate the patient he was on no distress resting comfortably in fact sleeping when initially entered the room. Patient's lab work was normal x-ray was normal patient be discharged home to follow-up with his primary medical care doctor for refills on his medication Undiagnosed new problem with uncertain prognosis? @ -[No] Drug Therapy requiring intensive monitoring for toxicity (Heparin, Nitro, Insulin, Cardizem)? @ -[No] Were any procedures done? @ -[No] Diagnosis/symptom? @ -[default] Acute, or Chronic, or Acute on Chronic? @ -[default] Uncomplicated (without systemic symptoms) or Complicated (systemic symptoms)? @ -[default] Side effects of treatment? @ -[No] Exacerbation, Progression, or Severe Exacerbation? @ -[No] Poses a threat to life or bodily function? How? (Chest pain, USA, OR, pneumonia, PE, COPD, DKA, ARF, appy, cholecystitis, CVA, Diverticulitis, Homicidal, Suicidal, threat to staff... and all critical care pts) @ -[No] - Lab Data Result diagrams: 10/22/24 17:41 10/22/24 17:41 Lab Results 10/22/24 10/22/24 10/22/24 Range/Units 17:41 17:41 17:41 WBC 8.8 (3.8-10.6) k/uL RBC 3.82 L (4.30-5.90) m/uL Hgb 12.5 L (13.0-17.5) gm/dL Hct 37.4 L (39.0-53.0) % MCV 98.0 (80.0-100.0) fL MCH 32.6 (25.0-35.0) pg MCHC 33.3 (31.0-37.0) g/dL RDW 14.1 (11.5-15.5) % Plt Count 169 (150-450) k/uL MPV 8.2 Neutrophils % 66 % Lymphocytes % 23 % Monocytes % 7 % Eosinophils % 3 % Basophils % 0 % Neutrophils # 5.8 (1.3-7.7) k/uL Lymphocytes # 2.0 (1.0-4.8) k/uL Monocytes # 0.6 (0-1.0) k/uL Eosinophils # 0.2 (0-0.7) k/uL Basophils # 0.0 (0-0.2) k/uL Sodium 137 (137-145) mmol/L Potassium 4.1 (3.5-5.1) mmol/L Chloride 109 H (98-107) mmol/L Carbon Dioxide 23 (22-30) mmol/L Anion Gap 5 mmol/L BUN 13 (9-20) mg/dL Creatinine 0.75 (0.66-1.25) mg/dL Est GFR (CKD-EPI)AfAm >90 (>60 ml/min/1.73 sqM) Est GFR (CKD-EPI)NonAf >90 (>60 ml/min/1.73 sqM) Glucose 100 H (74-99) mg/dL Calcium 8.9 (8.4-10.2) mg/dL Total Bilirubin 0.8 (0.2-1.3) mg/dL AST 19 (17-59) U/L ALT 17 (4-49) U/L Alkaline Phosphatase 33 L (38-126) U/L Troponin I <0.012 (0.000-0.034) ng/mL Total Protein 6.3 (6.3-8.2) g/dL Albumin 3.9 (3.5-5.0) g/dL Disposition Clinical Impression: S/P bronchoscopy, Dry cough Disposition: HOME SELF-CARE Condition: Good Instructions (If sedation given, give patient instructions): Acute Cough (ED) Is patient prescribed a controlled substance at d/c from ED?: No Referrals: Wilmer Dumont DO [Primary Care Provider] - 1-2 days Time of Disposition: 20:13
[2024-10-22 17:52] LABS: Basophils % (A) 0 %; Eosinophils # (A) 0.2 k/uL (0-0.7); Eosinophils % (A) 3 %; HCT 37.4 % (39.0-53.0); HGB 12.5 gm/dL (13.0-17.5); Lymphocytes % (A) 23 %; MCH 32.6 pg (25.0-35.0); MCHC 33.3 g/dL (31.0-37.0); Mean Platelet Volume 8.2; Monocytes # (A) 0.6 k/uL (0-1.0); Monocytes % (A) 7 %; Neutrophils # (A) 5.8 k/uL (1.3-7.7); Neutrophils % (A) 66 %; Platelet Count 169 k/uL (150-450); RBC 3.82 m/uL (4.30-5.90); RDW 14.1 % (11.5-15.5); WBC 8.8 k/uL (3.8-10.6)
[2024-10-22 18:10] LABS: ALT 17 U/L (4-49); AST 19 U/L (17-59); African American GFR (CKD) >90 (>60 ml/min/1.73 sqM); Albumin 3.9 g/dL (3.5-5.0); Alkaline Phosphatase 33 U/L (38-126); Anion Gap 5 mmol/L; Blood Urea Nitrogen 13 mg/dL (9-20); Calcium 8.9 mg/dL (8.4-10.2); Carbon Dioxide 23 mmol/L (22-30); Chloride 109 mmol/L (98-107); Glucose 100 mg/dL (74-99); Non-African American GFR(CKD) >90 (>60 ml/min/1.73 sqM); Potassium 4.1 mmol/L (3.5-5.1); Sodium 137 mmol/L (137-145); Total Bilirubin 0.8 mg/dL (0.2-1.3); Total Protein 6.3 g/dL (6.3-8.2)
--- NOTE | 2024-10-22 18:25 | XR ---
EXAMINATION TYPE: XR chest 2V DATE OF EXAM: 10/22/2024 CLINICAL HISTORY: Difficulty breathing with cough fever and chills. Recent bronchoscopy. History of l carlie cancer. TECHNIQUE: Frontal and lateral views of the chest are obtained. COMPARISON: Chest x-ray October 17, 2024 and CTA chest September 11, 2024 FINDINGS: There is background chronic emphysematous change with persistent parenchymal opacities in the periphery of the right upper lobe. Persistent elevated lateral right hemidiaphragm. Left lung is clear. Cardiac silhouette size stable and within normal limits. Hill-Sachs deformity suspected superi or lateral right humeral head. Persistent right hilar prominence corresponding to known adenopathy. IMPRESSION: Chronic changes without new acute pulmonary process. [facility], , 10/22/2024 6:23 PM
[2024-10-22 18:26] VITALS: TEMP 98.4
[2024-10-22 20:37] VITALS: BP 134/75; PULSE 72; RESP 18
== END 2024-10-22 20:48 | disposition home or self-care (01) ==
LOC: EC 16:18
DX: R05.9 Cough, unspecified (principal); Z48.813 Encounter for surgical aftercare following surgery on the respiratory system; Z88.0 Allergy status to penicillin; Z88.1 Allergy status to other antibiotic agents; Z88.5 Allergy status to narcotic agent; Z88.8 Allergy status to other drugs, medicaments and biological substances; Z87.891 Personal history of nicotine dependence
CPT/HCPCS: 36415; 93005; 80053; 84484; 85025; 71046; 99285; 96374; 96375; 96376 ×2; J2060; J1171

== ENCOUNTER → 2024-11-26 | Outpatient (CLI) | payer MEDICARE, OTHER ==
[2024-11-26 13:36] VITALS: BP 120/76; PULSE 69; RESP 18; TEMP 97.6
--- NOTE | 2024-11-26 15:22 | P.PAINPG ---
PQRS Measure Charge Sheet Comment: HISTORY OF PRESENT ILLNESS: A 73 yr old male w a history of Lung CA (surgery in 2018 at [facility]) presents today w severe and chronic epigastric pain secondary to chronic pancreatitis for medication refills. Pt states pain level is provoked at 7 /10 in intensity, constant, localized in the upper abdomen, burning in character w occasional shooting pain towards the mid back. Pain has unknown provocative factors. Pain is alleviated by medications, topical, heat, ice, use of a cane for ambulatory assistance, repositioning and rest. Interventional procedures include Medications include MS ER 15mg #90, Tyl REVIEW OF ORGAN SYSTEMS: CONSTITUTIONAL: No fevers or chills. No recent weight loss. NEUROLOGICAL: + numbness and tingling along the distal extremities. No seizure disorders or headaches. MUSCULOSKELETAL: + pain PSYCHIATRIC: Denies current depression or suicidal thoughts. Physical Examinations : Constitutional : Cooperative , not in acute distress . Neurologic : Cranial nerve II to XII intact. No focal ne urological deficits. Psychiatric : alert & oriented x 3. Matching mood & appropriate affect. Judgment & insight intact. Musculoskeletal : Cervical Spine Motor strength in the deltoid and biceps: Normal right side. Normal Left side Motor strength biceps and the wrist extensors: Normal right side . Normal left side Motor strength in the triceps muscle: Normal right side. Normal left side Deep tendon reflexes: Normal at the biceps. Normal at Brachioradialis. Normal at triceps Vertebral body tenderness to deep pa lpation over Cervical facet loading test: positive bilaterally Spurling test: positive bilaterally Neck distraction test: positive bilaterally Bridget sign: positive bilaterally Lumbar spine Motor strength lower extremities ,thigh and legs 5/5 Right side , 5/5 Left side Deep tendon reflexes : Normal Knee Jerk. Normal Ankle Jerk Vertebral body tenderness over Gomez Test positive Lumbar facet Loading Test: positive Right / positive Left Range of motion of the lumbar spine Flexion 30 degrees, extension 10 degrees Straight Leg Raise test: Left/ Right positive at degrees Shiela test: positive right / positive left. Severe tenderness over the Sacroiliac joint on the Right / Left sides Gaenslen test: positive bilaterally Seated flexion test: positive bilaterally. Sacral spine : Severe tenderness over the Sacroiliac joint: right side / left side Range of motion: Flexion of the lumbar spine <60 degrees Range of motion: Extension of the lumbar spine <20 degrees Gaenslen's Test positive Shiela test: positive right side / left side Thigh Thrust Test Sacral Thrust Test Assessment/ Plan : Chronic Idiopathic Pancreatitis , Hx of Lung CA Recommendation of medication management. MS ER 15mg #90 w 1 RF. Use, side effects, adverse reactions, safe storage discussed. Opiate/ narcotic agreement signed 03/31/24. UDS from 05/28/24 reviewed and consistent. All questions answered. I have spent greater than 30 minutes on patient care today. Dr Pisano was available by phone for the evaluation of this patient. The time was used to review the medical records including relevant urine studies and Prescription history (MAPs), review of the available imaging, evaluation and examination of the patient, coordination of care with the medical staff and if applicable referring physicians, as well as creation of the medical record - Pain Location Abdomen Pharmacological Interventions: PRN Medication PQRS Narrative: Hx Alcohol Use (MH) No Home Medications: Ambulatory Orders Famotidine 20 mg PO BID 03/31/24 Finasteride [Proscar] 5 mg PO DAILY 03/31/24 Ipratropium [place] [Atrovent Hfa] 1 - 2 puff INHALATION RT-QID PRN 03/31/24 LORazepam 0.5 mg PO TID PRN 03/31/24 Lipase/Protease/Amylase [Antonio Lancaster 36,000 Unit Capsule] 2 cap PO BID-W/MEALS PRN 03/31/24 Omeprazole [PriLOSEC] 40 mg PO BID 03/31/24 Tamsulosin [Flomax] 0.4 mg PO DAILY 03/31/24 tiaGABine HCL [Gabitril] 4 mg PO BID 03/31/24 Levalbuterol Nebulized [Xopenex Nebulized] 1.25 mg INHALATION RT-TID 09/11/24 Lipase/Protease/Amylase [Antonio Lancaster 36,000 Unit Capsule] 1 cap PO TID-W/MEALS PRN 09/11/24 Metoprolol Tartrate [Lopressor] 50 mg PO DAILY 09/11/24 Naloxone HCl [Narcan] 4 mg NASAL DIRECTED PRN 09/11/24 Diclofenac Sodium Gel [Voltaren 1% Gel] 2 gm TOPICAL QID #100 gm 09/12/24 LORazepam [Ativan] 0.5 mg PO TID 4 Days #12 tab 10/17/24 Morphine Sulfate ER [Ms Contin] 15 mg PO TID 30 Days #90 tab 11/26/24 Morphine Sulfate ER [Ms Contin] 15 mg PO TID PRN 30 Days #90 tab 11/26/24 Morphine Sulfate ER [Ms Contin] 15 mg PO TID PRN 30 Days #90 tab 11/26/24 Controlled Substance Measures - Controlled Substance Measures Is patient prescribed a controlled substance at discharge?: Yes When asked, does pt state using other controlled substances?: Yes If prescribed controlled substance>3 days was MAPS reviewed?: Yes
== END ==
LOC: PNWHC3 13:14
PROVIDERS: ATTEND Specialist
DX: K86.1 Other chronic pancreatitis (principal); Z87.09 Personal history of other diseases of the respiratory system; Z88.0 Allergy status to penicillin; Z88.6 Allergy status to analgesic agent; Z88.5 Allergy status to narcotic agent; Z88.8 Allergy status to other drugs, medicaments and biological substances
CPT/HCPCS: 80307; 99211; 99212

== ENCOUNTER → 2025-01-22 | Outpatient (CLI) | payer MEDICARE, OTHER ==
--- NOTE | 2025-01-23 07:43 | PE ---
EXAMINATION TYPE: PET CT fusion skull to thigh DATE OF EXAM: 01/22/2025 COMPARISON: Whole-body CT July 31, 2024 HISTORY: Lung cancer progress study. TECHNIQUE: Following the intravenous administration of 12.21 mCi of F-18 FDG, whole body images are performed from the skull base to the midthigh. Images are reviewed on the computer in the coronal, a xial, and sagittal planes. Reconstructed rotating images are created on independent workstation and reviewed on the computer. A localization and attenuation correction CT is performed in conjunction with the PET scan. Blood glucose level equals 95. SCAN: Subsequent Scan FINDINGS: SKULL BASE AND NECK: No areas of abnormal hypermetabolic uptake. CHEST, MEDIASTINUM, AND HILAR REGION: Calcified pleural plaques bilaterally are redemonstrated valencia wills concern for prior asbestos exposure. Underlying emphysematous change again seen. Persistent parench ymal scarring in the periphery of the right upper lung near axial image 96. No abnormal hypermetaboli c uptake at this level. There is however abnormal hypermetabolic uptake in the right hilar region axi al image 96s, max SUV is 5.56. Additional subcentimeter focus of abnormal hypermetabolic uptake anter ior right hilar region axial image 94, max SUV is 2.78. No additional areas of abnormal hypermetabolic uptake. ABDOMEN AND PELVIS: Normal excretion. No areas of abnormal hypermetabolic uptake. OSSEOUS STRUCTURES: No areas of abnormal hypermetabolic uptake. OTHER CT: Mild calcified plaque bilateral carotid bulb level. Mild cardiomegaly. Enlarged prostate co nsistent with BPH is present. IMPRESSION: Abnormal hypermetabolic uptake right hilar region worrisome for active malignancy. Consid er bronchoscopy evaluation to further evaluate. [facility], , 01/23/2025 7:41 AM
== END | disposition home or self-care (01) ==
LOC: RADPETMAIN 14:28
PROVIDERS: ATTEND Internal Medicine
DX: C34.82 Malignant neoplasm of overlapping sites of left bronchus and lung (principal)
CPT/HCPCS: 78815; A9552

== ENCOUNTER → 2025-02-18 | Outpatient (CLI) | payer MEDICARE, OTHER ==
[2025-02-18 13:14] VITALS: BP 103/66; PULSE 76; RESP 18; TEMP 97.6
--- NOTE | 2025-02-18 15:32 | P.PAINPG ---
Objective - Vital Signs Vital signs: Vital Signs Temp 97.6 F 02/18/25 13:09 Pulse 76 02/18/25 13:09 Resp 18 02/18/25 13:09 BP 103/66 02/18/25 13:09 Pulse Ox 98 02/18/25 13:09 FiO2 Intake & Output 02/17/25 02/18/25 02/18/25 18:59 06:59 18:59 Weight 73.482 kg PQRS Measure Charge Sheet Mode of Arrival: Ambulatory Comment: HISTORY OF PRESENT ILLNESS: A 73 yr old male w a history of Lung CA (surgery in 2018 at [facility]) presents today w severe and chronic epigastric pain secondary to chronic pancreatitis for medication refills. Pt states pain level is provoked at 8-9 /10 in intensity, constant, localized in the upper abdomen, burning in character w occasional shooting pain towards the mid back. Pain has unknown provocative factors. Pain is alleviated by medications, topical, heat, ice, use of a cane for ambulatory assistance, repositioning and rest. Interventional procedures include Medications include MS ER 15mg #90, Tyl REVIEW OF ORGAN SYSTEMS: CONSTITUTIONAL: No fevers or chills. No recent weight loss. NEUROLOGICAL: + numbness and tingling along the distal extremities. No seizure disorders or headaches. MUSCULOSKELETAL: + pain PSYCHIATRIC: Denies current depression or suicidal thoughts. Physical Examinations : Constitutional : Cooperative , not in acute distress . Neurologic : Cranial nerve II to XII intact. No focal neurological deficits. Psychiatric : alert & oriented x 3. Matching mood & appropriate affect. Judgment & insight intact. Musculoskeletal : Cervical Spine Motor strength in the deltoid and biceps: Normal right side. Normal Left side Motor strength biceps and the wrist extensors: Normal right side . Normal left side Motor strength in the triceps muscle: Normal right side. Normal left side Deep tendon reflexes: Normal at the biceps. Normal at Brachioradialis. Normal at triceps Vertebral body tenderness to deep palpation over Cervical facet loading test: positive bilaterally Spurling test: positive bilaterally Neck distraction test: positive bilaterally Bridget sign: positive bilaterally Lumbar spine Motor strength lower extremities ,thigh and legs 5/5 Right side , 5/5 Left side Deep tendon reflexes : Normal Knee Jerk. Normal Ankle Jerk Vertebral body tenderness over Gomez Test positive Lumbar facet Loading Test: positive Right / positive Left Range of motion of the lumbar spine Flexion 30 degrees, extension 10 degrees Straight Leg Raise test: Left/ Right positive at degrees Shiela test: positive right / positive left. Severe tenderness over the Sacroiliac joint on the Right / Left sides Gaenslen test: positive bilaterally Seated flexion test: positive bilaterally. Sacral spine : Severe tenderness over the Sacroiliac joint: right side / left side Range of motion: Flexion of the lumbar spine <60 degrees Range of motion: Extension of the lumbar spine <20 degrees Gaenslen's Test positive Shiela test: positive right side / left side Thigh Thrust Test Sacral Thrust Test Assessment/ Plan : Chronic Idiopathic Pancreatitis , Hx of Lung CA Recommendation of medication management. MS ER 15mg #90 w 1 RF. Use, side effects, adverse reactions, safe storage discussed. Opiate/ narcotic agreement signed 03/31/24. UDS from 05/28/24 reviewed and consistent. All questions answered. I have spent greater than 30 minutes on patient care today. Dr Pisano was available by phone for the evaluation of this patient. The time was used to review the medical records including relevant urine studies and Prescription history (MAPs), review of the available imaging, evaluation and examination of the patient, coordination of care with the medical staff and if applicable r eferring physicians, as well as creation of the medical record - Pain Location Generalized Pharmacological Interventions: Medication PQRS Narrative: Narcotic Agreement Date Signed 11/26/24 Blood Pressure 103/66 Pain Intensity [Generalized] 9 Scale Used Numeric (1 - 10) Hx Alcohol Use (MH) No Home Medications: Ambulatory Orders Famotidine 20 mg PO BID 03/31/24 Finasteride [Proscar] 5 mg PO DAILY 03/31/24 Ipratropium [place] [Atrovent Hfa] 1 - 2 puff INHALATION RT-QID PRN 03/31/24 LORazepam 0.5 mg PO TID PRN 03/31/24 Lipase/Protease/Amylase [Antonio Lancaster 36,000 Unit Capsule] 2 cap PO BID-W/MEALS PRN 03/31/24 Omeprazole [PriLOSEC] 40 mg PO BID 03/31/24 Tamsulosin [Flomax] 0.4 mg PO DAILY 03/31/24 tiaGABine HCL [Gabitril] 4 mg PO BID 03/31/24 Levalbuterol Nebulized [Xopenex Nebulized] 1.25 mg INHALATION RT-TID 09/11/24 Lipase/Protease/Amylase [Antonio Lancaster 36,000 Unit Capsule] 1 cap PO TID-W/MEALS PRN 09/11/24 Metoprolol Tartrate [Lopressor] 50 mg PO DAILY 09/11/24 Naloxone HCl [Narcan] 4 mg NASAL DIRECTED PRN 09/11/24 Diclofenac Sodium Gel [Voltaren 1% Gel] 2 gm TOPICAL QID #100 gm 09/12/24 LORazepam [Ativan] 0.5 mg PO TID 4 Days #12 tab 10/17/24 Morphine Sulfate ER [Ms Contin] 15 mg PO TID 30 Days #90 tab 11/26/24 Morphine Sulfate ER [Ms Contin] 15 mg PO TID PRN 30 Days #90 tab 11/26/24 Morphine Sulfate ER [Ms Contin] 15 mg PO TID PRN 30 Days #90 tab 11/26/24 Controlled Substance Measures - Controlled Substance Measures Is patient prescribed a controlled substance at discharge?: Yes When asked, does pt state using other controlled substances?: Yes If prescribed controlled substance>3 days was MAPS reviewed?: Yes
== END ==
LOC: PNWHC3 12:38
PROVIDERS: ATTEND Specialist
DX: G89.29 Other chronic pain (principal); K86.1 Other chronic pancreatitis; Z85.118 Personal history of other malignant neoplasm of bronchus and lung
CPT/HCPCS: 99212

== ENCOUNTER → 2025-05-13 | Outpatient (CLI) | payer MEDICARE, OTHER ==
[2025-05-13 12:57] VITALS: BP 102/63; PULSE 73; RESP 19; TEMP 97.9
--- NOTE | 2025-05-13 16:16 | P.PAINPG ---
PQRS Measure Charge Sheet Comment: HISTORY OF PRESENT ILLNESS: A 74 yr old male w a history of Lung CA (surgery in 2018 at [facility]) presents today w severe and chronic epigastric pain secondary to chronic pancreatitis for medication refills. Pt states pain level is provoked at 8-9 /10 in intensity, constant, localized in the upper abdomen, burning in character w occasional shooting pain towards the mid back. Pain has unknown provocative factors. Pain is alleviated by medications, topical, heat, ice, use of a cane for ambulatory assistance, repositioning and rest. Interventional procedures include Medications include MS ER 15mg #90, Tyl REVIEW OF ORGAN SYSTEMS: CONSTITUTIONAL: No fevers or chills. No recent weight loss. NEUROLOGICAL: + numbness and tingling along the distal extremities. No seizure disorders or headaches. MUSCULOSKELETAL: + pain PSYCHIATRIC: Denies current depression or suicidal thoughts. Physical Examinations : Constitutional : Cooperative , not in acute distress . Neurologic : Cranial nerve II to XII intact. No focal neurological deficits. Psychiatric : alert & oriented x 3. Matching mood & appropriate affect. Judgment & insight intact. Musculoskeletal : Cervical Spine Motor strength in the deltoid and biceps: Normal right side. Normal Left side Motor strength biceps and the wrist extensors: Normal right side . Normal left side Motor strength in the triceps muscle: Normal right side. Normal left side Deep tendon reflexes: Normal at the biceps. Normal at Brachioradialis. Normal at triceps Vertebral body tenderness to deep palpation over Cervical facet loading test: positive bilaterally Spurling test: positive bilaterally Neck distraction test: positive bilaterally Bridget sign: positive bilaterally Lumbar spine Motor strength lower extremities ,thigh and legs 5/5 Right side , 5/5 Left side Deep tendon reflexes : Normal Knee Jerk. Normal Ankle Jerk Vertebral body tenderness over Gomez Test positive Lumbar facet Loading Test: positive Right / positive Left Range of motion of the lumbar spine Flexion 30 degrees, extension 10 degrees Straight Leg Raise test: Left/ Right positive at degrees Shiela test: positive right / positive left. Severe tenderness over the Sacroiliac joint on the Right / Left sides Gaenslen test: positive bilaterally Seated flexion test: positive bilaterally. Sacral spine : Severe tenderness over the Sacroiliac joint: right side / left side Range of motion: Flexion of the lumbar spine <60 degrees Range of motion: Extension of the lumbar spine <20 degrees Gaenslen's Test positive Shiela test: positive right side / left side Thigh Thrust Test Sacral Thrust Test Assessment/ Plan : Chronic Idiopathic Pancreatitis , Hx of Lung CA Recommendation of medication management. MS ER 15mg #90 w 2 RF. Use, side effects, adverse reactions, safe storage discussed. Opiate/ narcotic agreement updated 03/31/24. UDS 05/13/25. All questions answered. I have spent greater than 30 minutes on patient care today. Dr Pisano was available by phone for the evaluation of this patient. The time was used to review the medical records including relevant urine studies and Prescription history (MAPs), review of the available imaging, evaluation and examination of the patient, coordination of care with the medical staff and if applicable referring physicians, as well as creation of the medical record PQRS Narrative: Narcotic Agreement Date Signed 11/26/24 Hx Alcohol Use (MH) No Home Medications: Ambulatory Orders Famotidine 20 mg PO BID 03/31/24 Finasteride [Proscar] 5 mg PO DAILY 03/31/24 Ipratropium [place] [Atrovent Hfa] 1 - 2 puff INHALATION RT-QID PRN 03/31/24 LORazepam 0.5 mg PO TID PRN 03/31/24 Lipase/Protease/Amylase [Antonio [place] 36,000 Unit Capsule] 2 cap PO BID-W/MEALS PRN 03/31/24 Omeprazole [PriLOSEC] 40 mg PO BID 03/31/24 Tamsulosin [Flomax] 0.4 mg PO DAILY 03/31/24 tiaGABine HCL [Gabitril] 4 mg PO BID 03/31/24 Levalbuterol Nebulized [Xopenex Nebulized] 1.25 mg INHALATION RT-TID 09/11/24 Lipase/Protease/Amylase [Antonio [place] 36,000 Unit Capsule] 1 cap PO TID-W/MEALS PRN 09/11/24 Metoprolol Tartrate [Lopressor] 50 mg PO DAILY 09/11/24 Naloxone HCl [Narcan] 4 mg NASAL DIRECTED PRN 09/11/24 Diclofenac Sodium Gel [Voltaren 1% Gel] 2 gm TOPICAL QID #100 gm 09/12/24 LORazepam [Ativan] 0.5 mg PO TID 4 Days #12 tab 10/17/24 Morphine Sulfate ER [Ms Contin] 15 mg PO TID 30 Days #90 tab 05/13/25 Morphine Sulfate ER [Ms Contin] 15 mg PO TID 30 Days #90 tab 05/13/25 Morphine Sulfate ER [Ms Contin] 15 mg PO TID PRN 30 Days #90 tab 05/13/25 Controlled Substance Measures - Controlled Substance Measures Is patient prescribed a controlled substance at discharge?: Yes When asked, does pt state using other controlled substances?: No If prescribed controlled substance>3 days was MAPS reviewed?: Yes
== END ==
LOC: PNWHC3 12:27
PROVIDERS: ATTEND Specialist
DX: K86.1 Other chronic pancreatitis (principal); Z85.118 Personal history of other malignant neoplasm of bronchus and lung; Z88.0 Allergy status to penicillin; Z88.1 Allergy status to other antibiotic agents; Z88.5 Allergy status to narcotic agent; Z88.6 Allergy status to analgesic agent; Z88.8 Allergy status to other drugs, medicaments and biological substances
CPT/HCPCS: 80307; G0463; 99211

== ENCOUNTER → 2025-05-21 | Outpatient (CLI) | payer MEDICARE, OTHER ==
--- NOTE | 2025-05-22 08:56 | PE ---
EXAMINATION TYPE: PET CT fusion skull to thigh DATE OF EXAM: 05/21/2025 CLINICAL INDICATION:Male, 74 years old with history of C34.82 LUNG CANCER; TECHNIQUE: Following the intravenous administration of 7.9 mCi of F-18 FDG, whole body images are p erformed from the skull base to the Mid thigh. Images are reviewed on the computer in the coronal, a xial, and sagittal planes. Reconstructed rotating images are created on independent workstation and reviewed on the computer. A non-contrast CT is performed in conjunction with the PET scan. Glucose level 101 mg/dL CT DLP: 1153 mGycm, Automated exposure control for dose reduction was used. COMPARISON: CT 09/11/2024, PET/CT 01/22/2025, MRI: None FINDINGS: Mediastinal SUV mean is 2.3. Hepatic parenchyma SUV mean is 3.1. SKULL BASE AND NECK: No suspicious radiotracer activity. CHEST, MEDIASTINUM, AND HILAR REGION: Suspicious uptake identified; examples include: * Enlarging right perihilar FDG avid lymph nodes max SUV 13.0 previously 5.6. Measurements are diffi cult given lack of IV contrast. On PET imaging measures at least 2.8 x 3.6 cm previously measuring up to 1.7 cm. * Right suprahilar lymph node max SUV 4.1 previously 2.8 ABDOMEN AND PELVIS: No suspicious radiotracer activity. MUSCULOSKELETAL STRUCTURES: No suspicious radiotracer activity. OTHER CT: Mild calcified plaque bilateral carotid bulb level. Mild cardiomegaly. Enlarged prostate co nsistent with BPH is present. Mild gynecomastia changes bilaterally.r IMPRESSION: Right perihilar mass as increased in size and FDG activity compared to prior. No evidence for metasta tic disease at this time. [facility], , 05/22/2025 8:54 AM
== END | disposition home or self-care (01) ==
LOC: RADPETMAIN 12:21
PROVIDERS: ATTEND Internal Medicine
DX: C34.82 Malignant neoplasm of overlapping sites of left bronchus and lung (principal); R91.8 Other nonspecific abnormal finding of lung field
CPT/HCPCS: 78815; A9552